=== PATIENT | female | born 1940 | race Caucasian/White ===

== ENCOUNTER 2016-12-13 19:47 | Outpatient (CLI) | payer MEDICARE, OTHER | END 2016-12-13 19:48 | disposition home or self-care (01) | DX: G47.33 Obstructive sleep apnea (adult) (pediatric) (principal); G47.00 Insomnia, unspecified ==

== ENCOUNTER 2017-01-11 10:21 | Outpatient (CLI) | payer MEDICARE, OTHER | END 2017-01-11 10:22 | disposition home or self-care (01) | DX: G47.33 Obstructive sleep apnea (adult) (pediatric) (principal) | CPT/HCPCS: 99213; G0463 ==

== ENCOUNTER 2018-08-15 11:50 | Outpatient (CLI) | payer MEDICARE, OTHER | END 2018-08-15 11:51 | disposition critical access hospital (66) | LOC: EMS 11:50 | PROVIDERS: ATTEND Surgery | DX: K92.0 Hematemesis (principal); K92.1 Melena | CPT/HCPCS: A0425; A0429 ==

== ENCOUNTER 2018-08-15 12:17 | Inpatient (IN) | payer MEDICARE, OTHER ==
[2018-08-15 12:48] LABS: BASOPHILS % (AUTO) 0.2 %; EOSINOPHILS % (AUTO) 0.1 %; HGB - HEMOGLOBIN 11.7 g/dL (12.0-16.0); LYMPHOCYTES # (AUTO) 0.9 10^3/uL (1.5-3.5); LYMPHOCYTES % (AUTO) 5.6 %; MEAN CORPUSCULAR HEMOGLOBIN 30.5 pg (27.0-31.0); MEAN CORPUSCULAR HGB CONC 33.8 g/dL (32.0-36.0); MEAN CORPUSCULAR VOLUME 90.1 fL (81.0-99.0); MEAN PLATELET VOLUME 7.3 fL (7.9-10.8); MONOCYTES # (AUTO) 0.4 10^3/uL (0.0-1.0); MONOCYTES % (AUTO) 2.6 %; NEUTROPHILS # (AUTO) 14.7 10^3/uL (1.5-6.6); NEUTROPHILS % (AUTO) 91.5 %; PLT - PLATELET COUNT 396 10^3/uL (130-450); RED BLOOD COUNT 3.83 10^6/uL (4.20-5.40); RED CELL DISTRIBUTION WIDTH 13.4 % (12.0-15.0); WHITE BLOOD COUNT 16.1 x10^3/uL (4.8-10.8)
[2018-08-15 12:59] LABS: ALBUMIN 3.2 g/dL (3.2-5.5); ALBUMIN/GLOBULIN RATIO 1.3 (1.0-2.2); ALKALINE PHOSPHATASE 62 IU/L (42-121); ALT ALANINE AMINOTRANSFERASE 22 IU/L (10-60); AST ASPARTATE AMINOTRANSFERASE 21 IU/L (10-42); BILIRUBIN,TOTAL 0.5 mg/dL (0.2-1.0); BUN - BLOOD UREA NITROGEN 49 mg/dL (6-20); CALCIUM 8.4 mg/dL (8.5-10.3); CARBON DIOXIDE - CO2 23 mmol/L (21-32); CHLORIDE 104 mmol/L (101-111); CREATININE 0.6 mg/dL (0.4-1.0); GFR - MDRD 97 (>89); GLUCOSE 172 mg/dL (70-100); LIPASE 39 U/L (22-51); SODIUM 135 mmol/L (135-145); TOTAL PROTEIN 5.7 g/dL (6.7-8.2)
[2018-08-15] MEDS ORDERED: FAMOTIDINE 20 MG/50 ML 50 ML IV SCH (13:00)
[2018-08-15 13:01] LABS: PT - PROTHROMBIN TIME 11.8 secs (9.9-12.6)
--- NOTE | 2018-08-15 13:21 | ED Physician Documentation ---
History of Present Illness - Stated complaint Stated Complaint: GI BLEED - Chief complaint Chief Complaint: Abd Pain - Additonal information Additional information: 77-year-old female presents the emergency department with reports of blood in her vomit and stools. The patient's symptoms started this morning with one episode of vomiting, the patient had another episode just prior to arrival where she vomited blood and had a significant amount of blood in her stools. The patient reports epigastric discomfort. The patient denies any new medications or any recent heavy alcohol usage. The patient does take a significant amount of [id number] supplements. The patient reports a history of gastritis but no history of GI bleeding. Symptoms are described as severe. The patient reports dizziness. No relieving factors. No triggering factors Review of Systems Constitutional: denies: Fever, Chills Eyes: denies: Discharge Ears: denies: Ear pain Nose: denies: Congestion Throat: denies: Sore throat Cardiac: denies: Chest pain / pressure Respiratory: denies: Cough GI: reports: Abdominal Pain, Nausea, Vomiting, Bloody / black stool : denies: Dysuria Skin: denies: Rash Musculoskeletal: denies: Back pain Neurologic: denies: Generalized weakness Immunocompromised: denies: Chemotherapy PD PAST MEDICAL HISTORY - Past Medical History Past Medical History: Yes GI: GERD Musculoskeletal: Chronic back pain - Past Surgical History Past Surgical History: Yes /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 - Present Medications Home Medications: Ambulatory Orders Medication Instructions Recorded Confirmed Amoxicillin/Potassium Clav 1 each PO BID #20 tablet 03/26/15 03/26/15 [Augmentin 875-125 Tablet] Oxycodone HCl/Acetaminophen 1 - 2 each PO Q6H PRN #15 tablet 03/26/15 03/26/15 [Percocet 5-325 mg Tablet] Thyroid,Pork [Nature-Throid] 16.25 mg PO DAILY 03/26/15 03/26/15 - Allergies Allergies/Adverse Reactions: Allergies Allergy/AdvReac Type Severity Reaction Status Date / Time No Known Drug Allergies Allergy Verified 08/15/18 12:25 - Social History Does the pt smoke?: No Smoking Status: Never smoker Does the pt drink ETOH?: Yes Does the pt have substance abuse?: No - Immunizations Immunizations are current?: No Immunizations: No immun PD ED PE NORMAL - General General: Alert and oriented X 3, No acute distress - HEENT HEENT: Atraumatic, PERRL, EOMI, Ears normal - Cardiac Cardiac: RRR, Strong equal pulses - Respiratory Respiratory: No respiratory distress, Clear bilaterally - Abdomen Abdomen: Soft, Non distended. No: Non tender (The patient has epigastric tenderness) - Derm Derm: Normal color - Extremities Extremities: No deformity, No edema - Neuro Neuro: Alert and oriented X 3, Normal speech - Psych Psych: Normal affect Results - Vitals Vitals: Vital Signs - 24 hr 08/15/18 08/15/18 12:21 13:30 Heart Rate 87 78 Respiratory 18 20 Rate Blood Pressure 129/71 128/65 O2 Saturation 95 97 Oxygen O2 Source Room air - Labs Labs: Laboratory Tests 08/15/18 08/15/18 08/15/18 12:35 12:35 12:35 WBC 16.1 H RBC 3.83 L Hgb 11.7 L Hct 34.5 L MCV 90.1 MCH 30.5 MCHC 33.8 RDW 13.4 Plt Count 396 MPV 7.3 L Neut # (Auto) 14.7 H Lymph # (Auto) 0.9 L [place] # (Auto) 0.4 Eos # (Auto) 0.0 Baso # (Auto) 0.0 Absolute Nucleated RBC 0.00 Nucleated RBC % 0.0 PT 11.8 INR 1.0 APTT 25.1 Sodium 135 Potassium 4.7 Chloride 104 Carbon Dioxide 23 Anion Gap 8.0 BUN 49 H Creatinine 0.6 Estimated GFR (MDRD) 97 Glucose 172 H Calcium 8.4 L Total Bilirubin 0.5 AST 21 ALT 22 Alkaline Phosphatase 62 Troponin I Total Protein 5.7 L Albumin 3.2 Globulin 2.5 Albumin/Globulin Ratio 1.3 Lipase 39 Ethyl Alcohol < 5.0 Blood Type Antibody Screen 08/15/18 08/15/18 12:35 12:36 WBC RBC Hgb Hct MCV MCH MCHC RDW Plt Count MPV Neut # (Auto) Lymph # (Auto) [place] # (Auto) Eos # (Auto) Baso # (Auto) Absolute Nucleated RBC Nucleated RBC % PT INR APTT Sodium Potassium Chloride Carbon Dioxide Anion Gap BUN Creatinine Estimated GFR (MDRD) Glucose Calcium Total Bilirubin AST ALT Alkaline Phosphatase Troponin I < 0.04 Total Protein Albumin Globulin Albumin/Globulin Ratio Lipase Ethyl Alcohol Blood Type B NEGATIVE Antibody Screen NEGATIVE PD MEDICAL DECISION MAKING - ED course ED course: The patient has an acute GI bleed, the patient was started on Protonix drip and will require admission to the hospital for ongoing management of her symptoms. The findings and plan were discussed the patient and family who understand and agree to the plan The case is discussed with the hospitalist Dr. Vila who accepts the patient onto her service - Sepsis Event Vital Signs: Vital Signs - 24 hr 08/15/18 08/15/18 12:21 13:30 Heart Rate 87 78 Respiratory 18 20 Rate Blood Pressure 129/71 128/65 O2 Saturation 95 97 Oxygen O2 Source Room air Departure - Departure Disposition: ED Place in Observation Clinical Impression: GI bleed Qualifiers: GI bleed type/associated pathology: unspecified gastrointestinal hemorrhage type Qualified Code(s): K92.2 - Gastrointestinal hemorrhage, unspecified Condition: Fair
[2018-08-15] MEDS ORDERED: PANTOPRAZOLE 80 MG in SODIUM CHLORIDE 0.9% 100ML 100 ML IV STA ×4 (13:34)
[2018-08-15] MEDS ORDERED: METOCLOPRAMIDE 10 MG/2 ML VIAL IVP STA (13:35)
[2018-08-15] MEDS ORDERED: MORPHINE 10 MG/ML VIAL IVP STA (13:35)
[2018-08-15] MEDS ORDERED: SODIUM CHLORIDE FLUSH 0.9% 10 ML SYRINGE IVP PRN (14:12)
[2018-08-15] MEDS ORDERED: SODIUM CHLORIDE 0.9% 1,000 ML IV ONE (14:15)
--- NOTE | 2018-08-15 14:16 | HISTORY & PHYSICAL EXAMINATION ---
Chief Complaint - Chief Complaint Chief Complaint: epi-gastric pain History of Present Illness - Admitted From Admitted From:: ED - History Obtained From Records Reviewed: yes History obtained from: chart review, patient Exam Limitations: none - History of Present Illness HPI Comment/Other: Donte Aleman is a 77-year old female with a past medical history of GERD, gastritis, H. pylori, 2 c-sections, and osteoarthritis. She woke up this morning with an urgency to move her bowels, and 30 minutes later. The second time she noticed that this was accompanied by diaphoresis, nausea, dizziness and the stool appeared loose and black. She beleived that she ate too many blueberries the day before, so thought this may have made her stool a dark color. She saw her aircraft instrument tester in the clinic who concluded that these symptoms are from "food poisoning". When she returned home, she vomited up bright red blood that she describes as about a mouth full and called 911. Once arriving in the ED the patient was found to be mildly anemic with a hemoglobin of 11.7 and a hematocrit of 34.5. She was also noted to have an elevated WBC count of 16.1, an elevated BUN of 49, an elevated blood glucose of 172, a normal troponin, a negative blood alcohol level and was otherwise hemodynamically stable. Due to her reports of vomiting blood, anemia, and WBC count, she will be admitted to inpatient with a GI consult. Once arriving on the nursing floor, she got up to the bed side commode, lost consciousness, appeared pale diaphoretic, was bradycardic with heart rates in the 60's, normal blood pressure. She was manually lifted to bed by nursing, placed in trendelenberg, given a 500ml normal saline bolus and monitored. Her family was in the hallway and updated. I called Dr. Lacho Ga, who will plan for an immediate EGD. The patient's commode was nearly all the way full of black/maroon stool. STAT labs, a chest x-ray and an EKG were obtained and final results pending. History - Past Medical History Cardiovascular: reports: None Respiratory: reports: None Neuro: reports: None Endocrine/Autoimmune: reports: None GI: reports: GERD, Other (gastritis) RESPIRATORY ASSISTANT: reports: None : reports: Retention, Nocturia, Frequency HEENT: reports: None Psych: reports: None Musculoskeletal: reports: Chronic back pain Derm: reports: None MRSA Hx?: No - Past Surgical History /RESPIRATORY ASSISTANT: reports: section - Family & Social History Family History: Mother: , Father: , Cancer Family History Comment/Other: The patient's mother from complications after ischemic colitis, her father had pancreatic cancer. 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 She lives alone and does all of her ADLs independently. She denies the use of alcohol, illicit drugs, or tobacco use. She wishes to be a FULL code. - Substance History Use: Uses substance without health or social issues: NONE Abuse: Recurrent use of substance despite neg consequences: NONE Dependence: Experiences withdrawal or developed tolerances: NONE - POLST Patient has POLST: No POLST Status: Full Code Meds/Allgy - Home Medications Home Medications: Ambulatory Orders Medication Instructions Recorded Confirmed Thyroid,Pork [Nature-Throid] 16.25 mg PO DAILY 03/26/15 08/16/18 Estradiol 0.25 mg TOP DAILY 08/16/18 08/16/18 Naltrexone HCl 3 mg PO QPM 08/16/18 08/16/18 Testosterone 4 mg TOP DAILY 08/16/18 08/16/18 - Allergies Allergies/Adverse Reactions: Allergies Allergy/AdvReac Type Severity Reaction Status Date / Time No Known Drug Allergies Allergy Verified 08/15/18 12:25 Exam - Vital Signs Vital Signs: Vital Signs x48h Pulse Resp BP Pulse Ox 08/15/18 13:30 78 20 128/65 97 08/15/18 12:21 87 18 129/71 95 Conclusion/Plan - Problem List (1) GI bleed Conclusion/Plan: The patient admits to vomiting "about a mouth full" of blood this morning. She also had frequent stools beginning at 6:15AM, and another about 30 minutes later. She states that her stool appeared black, but thought it was due to eating too many blueberries yesterday. She states that starting last Tuesday 3 days ago, she noticed increased heartburn symptoms. The patient had a syncopal episode soon after arriving to the nursing floor in which she lost consciousness, a danny garcia was called and she filled the bedside commode with black/maroon liquid stool. Dr. Lacho Ga was called for this consult, who will plan to do an EGD STEFAN. Plan: Continue GI work up with EGD this evening. Qualifiers: GI bleed type/associated pathology: gastric ulcer Qualified Code(s): K25.4 - Chronic or unspecified gastric ulcer with hemorrhage (2) Abdominal pain Conclusion/Plan: The patient complains of LUQ and RUQ abdominal pain that began this morning. She had 2 loose, black stools and went to her PCP who is a aircraft instrument tester and concluded that she has "food poisoning". She went home and vomited a mouth full of bright red blood, so called 911. Once in the ED she continued to complain of abdominal pain as severe. Plan: Continue GI work up. 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 She may have had ulcers creeping up on her, and denies recent bleeding or a cancer history. Plan: Iron studies and serial H/Hs. (4) H/O Helicobacter infection Conclusion/Plan: The patient states that she had a history of this in which she was treated by "lowering her blood sugar and being injected with something". Plan: Wait for testing and plan to treat if positive. - Lab Results Lab results reviewed: Yes Victor Manuel Bones: 08/16/18 05:00 08/16/18 05:00 Core Measures - Anticipated LOS I expect patient to be DC'd or transferred within 96 hours.: Yes - DVT/VTE - Prophylaxis VTE/DVT Device ordered at admit?: Yes VTE/DVT Prophylaxis med ordered at admit?: No Not Ordered - Medical Reason: Contraindicated - Stroke - Rehab Assessment Rehab services assessment to be ordered?: No Not Ordered - Medical Reason: Contraindicated - AMI - Statin at Admit Aspirin Prescribed on Admit: No Not Ordered - Medical Reason: Contraindicated
[2018-08-15] MEDS ORDERED: SODIUM CHLORIDE 0.9% 500 ML IV ONE (17:29)
[2018-08-15 17:32] LABS: BASOPHILS % (AUTO) 0.4 %; EOSINOPHILS % (AUTO) 0.1 %; LYMPHOCYTES % (AUTO) 8.1 %; MEAN CORPUSCULAR HEMOGLOBIN 30.2 pg (27.0-31.0); MEAN CORPUSCULAR HGB CONC 33.1 g/dL (32.0-36.0); MEAN CORPUSCULAR VOLUME 91.2 fL (81.0-99.0); MEAN PLATELET VOLUME 7.6 fL (7.9-10.8); MONOCYTES # (AUTO) 0.4 10^3/uL (0.0-1.0); NEUTROPHILS # (AUTO) 10.6 10^3/uL (1.5-6.6); NEUTROPHILS % (AUTO) 88.4 %; PLT - PLATELET COUNT 338 10^3/uL (130-450); RED BLOOD COUNT 2.99 10^6/uL (4.20-5.40); RED CELL DISTRIBUTION WIDTH 13.7 % (12.0-15.0)
[2018-08-15 17:41] LABS: CALCIUM 7.4 mg/dL (8.5-10.3); CREATININE 0.4 mg/dL (0.4-1.0)
[2018-08-15 17:45] LABS: INR 1.1 (0.8-1.2); PT - PROTHROMBIN TIME 12.7 secs (9.9-12.6)
[2018-08-15] MEDS: SODIUM CHLORIDE FLUSH 0.9% 10 ML SYRINGE IVP SCH (17:45)
[2018-08-15] MEDS ORDERED: PHENYLEPHRINE 50 MG/5 ML VIAL IV ONE (18:00)
[2018-08-15] MEDS ORDERED: fentaNYL 100 MCG/2 ML VIAL IVP ONE (18:00)
[2018-08-15] MEDS ORDERED: MIDAZOLAM 2 MG/2 ML VIAL IVP ONE (18:00)
[2018-08-15] MEDS ORDERED: PROPOFOL 200 MG/20 ML VIAL IVP ONE (18:00)
--- NOTE | 2018-08-15 18:03 | ANESTHESIA ---
Pre-Anesthesia VS, & Labs - Diagnosis GI Bleed - Procedure EGD Vital Signs: Temp Pulse Resp BP Pulse Ox 36.3 C L 86 18 127/42 L 98 08/15/18 16:07 08/15/18 16:07 08/15/18 16:07 08/15/18 16:00 08/15/18 16:07 Height 5 ft 2 in Weight (kg) 77.5 kg Body Mass Index 31.2 - NPO Last Fluid Intake: 1000-h2o Last Food Intake: 0800-protein shake - Is Patient ?: No - Lab Results Current Lab Results: Laboratory Tests 08/15/18 17:36: Lactic Acid 2.3 H 08/15/18 17:17: Troponin I < 0.04 08/15/18 17:17: Sodium 136, Potassium 4.5, Chloride 111, Carbon Dioxide 19 L, Anion Gap 6.0, BUN 48 H, Creatinine 0.4, Estimated GFR (MDRD) 156, Glucose 153 H , Calcium 7.4 L 08/15/18 17:17: PT 12.7 H, INR 1.1 08/15/18 17:17: WBC 12.0 H, RBC 2.99 L, Hgb 9.0 L, Hct 27.3 L, MCV 91.2, MCH 30.2, MCHC 33.1, RDW 13.7, Plt Count 338, MPV 7.6 L, Neut # (Auto) 10.6 H, Lymph # (Auto) 1.0 L, [place] # (Auto) 0.4, Eos # (Auto) 0.0, Baso # (Auto) 0.0, Absolute Nucleated RBC 0.00, Nucleated RBC % 0.0 08/15/18 12:36: Troponin I < 0.04 08/15/18 12:35: Blood Type B NEGATIVE, Antibody Screen NEGATIVE 08/15/18 12:35: Sodium 135, Potassium 4.7, Chloride 104, Carbon Dioxide 23, Anion Gap 8.0, BUN 49 H, Creatinine 0.6, Estimated GFR (MDRD) 97, Glucose 172 H, Calcium 8.4 L, Total Bilirubin 0.5, AST 21, ALT 22, Alkaline Phosphatase 62, Total Protein 5.7 L, Albumin 3.2, Globulin 2.5, Albumin/Globulin Ratio 1.3, Lipase 39, Ethyl Alcohol < 5.0 08/15/18 12:35: PT 11.8, INR 1.0, APTT 25.1 08/15/18 12:35: WBC 16.1 H, RBC 3.83 L, Hgb 11.7 L, Hct 34.5 L, MCV 90.1, MCH 30.5, MCHC 33.8, RDW 13.4, Plt Count 396, MPV 7.3 L, Neut # (Auto) 14.7 H, Lymph # (Auto) 0.9 L, [place] # (Auto) 0.4, Eos # (Auto) 0.0, Baso # (Auto) 0.0, Absolute Nucleated RBC 0.00, Nucleated RBC % 0.0 Fish Bones: 08/15/18 17:17 08/15/18 17:17 Home Medications and Allergies Home Medications: Ambulatory Orders Medication Instructions Recorded Confirmed Thyroid,Pork [Nature-Throid] 16.25 mg PO DAILY 03/26/15 03/26/15 Estrogens, Conjugated [Premarin] 08/15/18 Naltrexone HCl See Protocol 08/15/18 Testosterone [Androgel] 1.25 gm TD 08/15/18 Active Medications Pantoprazole Sodium 80 mg/ (Sodium Chloride) 100 mls @ 10 mls/hr IV .Q10H STA Stop: 08/15/18 23:33 Last Admin: 08/15/18 15:25 Dose: 10 mls/hr Polyethylene Glycol (Miralax) 17 gm PO DAILY ANA Sodium Chloride (Normal Saline Flush 0.9%) 10 ml IVP PRN PRN PRN Reason: NEEDED PER PROVIDER ORDERS Sodium Chloride (Normal Saline Flush 0.9%) 10 ml IVP 0100,0900,1700 ANA Thyroid,Pork [Nature-Throid] 16.25 mg PO DAILY 03/26/15 Allergies/Adverse Reactions: Allergies Allergy/AdvReac Type Severity Reaction Status Date / Time No Known Drug Allergies Allergy Verified 08/15/18 12:25 Anes History & Medical History - Anesthetic History Family history of Anesthesia Complications: Denies Family history of Malignant Hyperthermia: Denies - Medical History Cardiovascular: reports: None Pulmonary: reports: None Gastrointestinal: reports: GERD Urinary: reports: None Neuro: reports: None Musculoskeletal: reports: Chronic back pain Endocrine/Autoimmune: reports: HyPOthyroidism, Other (Patient reports she has undiagnosed autoimmune disorder) Blood Disorders: reports: None Skin: reports: Herpes zoster Smoking Status: Never smoker Other Past Medical History: situational anxiety - Surgical History Gynecologic: section Exam General: Alert, Oriented x3, Cooperative Dental: WNL Mouth Openin Fingerbreadth Neck Mobility: Normal Mallampati classification: III Thyromental Distance: 4-6 cm Respiratory: Lungs clear, Normal breath sounds, No respiratory distress, No accessory muscle use Cardiovascular: Other (Grade 4 systolic murmur) Mental/Cognitive Status: Alert/Oriented X3, Normal for patient Cognitive Status: Within normal limits, Memory impairment Plan Anesthesia Type: MAC Consent for Procedure(s) Verified and Reviewed: Yes Code Status: Attempt Resuscitation ASA classification: 3-Severe systemic disease Is this case an emergency?: Yes
--- NOTE | 2018-08-15 18:15 | CONSULTATION NOTE ---
Referring Provider Name of Referring Provider:: oJnes Arora Consult Date: 08/15/18 Chief Complaint - Chief Complaint Chief Complaint: GI bleed History of Present Illness - Admitted From Admitted From:: ER - History Obtained From Records Reviewed: yes History obtained from: pt and records Exam Limitations: none - History of Present Illness HPI Comment/Other: 77 yo female who noted onset of black stools x 2 this am, followed by an episode of bright red hematemesis this afternoon prompting evaluation in the ER and admission. Since admission, pt had a large black bloody bm associated with a syncopal episode at approx 1630 hrs today. She reports epigastric distress for the past 3-4 days, self diagnosed as "gastritis". She reports no prior episodes of gi bleeding but does report prior episodes of epigastric distress over many years. She reports a hx of H. pylori infection diagnosed approximately 10 yrs ago by her integrative medicine provider on the basis of a stool test to evaluate unknown gi complaints, and was treated by several injections with ap parent resolution of sx per pt. She reports rare heartburn, no dysphagia or food intolerance, no known hx of PUD, no prior UGI evaluations, minimal alcohol intake (less than one drink/month); no tobacco use; occasional NSAID use (once a week or less) for aches/pains; no recent wt loss. Neg FH gi tumors; she reports a nl colonoscopy approx 20 yrs ago. She currently is hemodynamically stable with nl vital signs and O2 saturation. 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 THERAPIST: reports: section (multiple) - Family & Social History Family History Comment/Other: Neg for Gi tumors Living arrangement: At home - Substance History Use: Uses substance without health or social issues: Alcohol (one drink a week or less) Abuse: Recurrent use of substance despite neg consequences: NONE Dependence: Experiences withdrawal or developed tolerances: NONE - POLST POLST Status: Full Code Meds/Allgy - Home Medications Home Medications: Ambulatory Orders Medication Instructions Recorded Confirmed Thyroid,Pork [Nature-Throid] 16.25 mg PO DAILY 03/26/15 03/26/15 Estrogens, Conjugated [Premarin] 08/15/18 Naltrexone HCl See Protocol 08/15/18 Testosterone [Androgel] 1.25 gm TD 08/15/18 - Allergies Allergies/Adverse Reactions: Allergies Allergy/AdvReac Type Severity Reaction Status Date / Time No Known Drug Allergies Allergy Verified 08/15/18 12:25 Review of Systems - Constitutional Constitutional: reports: Weakness, Diaphoresis. denies: Fever, Weight gain, Weight loss - Cardiovascular Cariovascular: reports: Lightheadedness (earlier today), Syncope (earlier this afternoon). denies: Irregular heart rate, Chest pain - Respiratory Respiratory: denies: Cough, Sputum production - Gastrointestinal Gastrointestinal: reports: Abdominal pain (mild epigastric distress), Change in bowel habits, Rectal bleeding, Black stools, Nausea, Victor M blood emesis. denies: Abdominal distention, Coffee grounds emesis, Reflux/heartburn - Musculoskeletal Musculoskeletal: reports: Back pain - Hematologic/Lymphatic Hematologic/Lymphatic: denies: Bruising, Bleeding tendencies - All Other Systems All Other Systems: reports: Reviewed and negative Exam - Vital Signs Reviewed Vital Signs: Yes Vital Signs: Vital Signs x48h Temp Pulse Pulse Resp BP BP Pulse Ox 08/15/18 16:07 36.3 C L 86 18 98 08/15/18 16:00 36.3 C L 86 20 127/42 L 98 08/15/18 13:30 78 20 128/65 97 08/15/18 12:21 87 18 129/71 95 - Physical Exam General Appearance: positive: No acute distress, Alert, Anxious Eyes Bilateral: positive: Normal inspection, Conjunctivae nml, No scleral icterus ENT: positive: ENT inspection nml, Pharynx nml, No signs of dehydration Neck: positive: Nml inspection, Trachea midline. negative: Lymphadenopathy (R), Lymphadenopathy (L) Respiratory: positive: Chest non-tender, No respiratory distress, Breath sounds nml. negative: Wheezes, Rales, Rhonchi Cardiovascular: positive: Regular rate & rhythm, No gallop, Systolic murmur (CHRISTIANNE). negative: JVD present Peripheral Pulses: positive: 2+ Abdomen: positive: Non-tender, No organomegaly, Nml bowel sounds, No distention. negative: Guarding, Rebound, Hepatomegaly, Splenomegaly, Mass Skin: positive: Warm, Dry, Pallor. negative: Cyanosis Extremities: positive: Nml appearance, No pedal edema. negative: Calf tenderness Neurologic/Psychiatric: positive: Oriented x3 Conclusion/Plan - Diagnosis Diagnosis: Upper GI bleed, major, with syncopal episode. DDX includes H. Pylori infection/PUD, neoplasm, dieulafoy lesion, angiodysplasia, doubt gastritis, varices, GERD. - Plan Plan: Agree with present management with IVF, IV PPI therapy, transfuse prn. Advised pt to undergo EGD this evening with possible therapy. PAR conference with pt including discussed risks of continued/recurrent bleeding and possible need for surgery, and consent obtained. - Lab Results Lab results reviewed: Yes Fish Bones: 08/15/18 17:17 08/15/18 17:17 - Diagnostic Imaging Results Diagnostic Imaging Results: positive: Read independently Diagnostic Imaging Results Comments: upright portable CXR: NAD to my reading. - EKG Results EKG Interpreted Independently: No EKG Findings: NSR; possible old septal infarct
[2018-08-15] MEDS ORDERED: KETAMINE 500 MG/10 ML VIAL ONE (18:25)
[2018-08-15] MEDS ORDERED: fentaNYL 100 MCG/2 ML VIAL ONE (18:25)
[2018-08-15] MEDS ORDERED: MIDAZOLAM 2 MG/2 ML VIAL ONE (18:25)
[2018-08-15] MEDS ORDERED: LACTATED RINGERS 1,000 ML IV ONE (18:44)
--- NOTE | 2018-08-15 18:46 | XRAY Report ---
Reason: syncope Procedure Date: 08/15/2018 Accession Number: [id number] / [id number] Procedure: XR - Chest 1 View X-Ray CPT Code: 73430 FULL RESULT: EXAM: CHEST RADIOGRAPHY EXAM DATE: 08/15/2018 05:29 PM. CLINICAL HISTORY: Syncope. COMPARISON: None. TECHNIQUE: 1 view. FINDINGS: Lungs/Pleura: No focal opacities evident. No pleural effusion. No pneumothorax. Mediastinum: Normal heart size. There is thoracic aortic calcification. Other: None. IMPRESSION: No acute intrathoracic plain film abnormality. RADIA
[2018-08-15] MEDS: LACTATED RINGERS 1,000 ML IV SCH (19:20)
[2018-08-15 20:47] LABS: HGB - HEMOGLOBIN 8.6 g/dL (12.0-16.0)
[2018-08-15 21:20] LABS: % IRON SATURATION 30 % (20-50); GAMMA GLUTAMYL TRANSPEPTIDASE 11 IU/L (8-38); IRON 74 ug/dL (28-170); TOTAL IRON BINDING CAPACITY 246 ug/dL (250-450); TRANSFERRIN 176 mg/dL (192-382)
[2018-08-15] MEDS ORDERED: LIDOCAINE 2% URO-JET 5 ML SYRINGE UR ONE (21:25)
[2018-08-15 21:48] LABS: BILIRUBIN,URINE NEGATIVE (NEGATIVE); GLUCOSE, URINE (UA) NEGATIVE (NEGATIVE); KETONES,URINE (UA) NEGATIVE (NEGATIVE); LEUKOCYTE ESTERASE, URINE NEGATIVE (NEGATIVE); NITRITE,URINE NEGATIVE (NEGATIVE); OCCULT BLOOD,URINE NEGATIVE (NEGATIVE); PH,URINE 5.5 PH (5.0-7.5); PROTEIN,URINE NEGATIVE (NEGATIVE); UROBILINOGEN,URINE 0.2 (NORMAL) E.U./dL (NORMAL)
[2018-08-15] MEDS ORDERED: LIDOCAINE 2% URO-JET 5 ML SYRINGE UR SCH (21:48)
[2018-08-15 21:53] LABS: CLARITY,URINE CLEAR (CLEAR)
[2018-08-15 23:56] LABS: HGB - HEMOGLOBIN 8.4 g/dL (12.0-16.0)
[2018-08-16] MEDS: SODIUM CHLORIDE FLUSH 0.9% 10 ML SYRINGE IVP SCH ×3 (02:55→18:06)
[2018-08-16 05:20] LABS: BASOPHILS % (AUTO) 0.5 %; EOSINOPHILS # (AUTO) 0.1 10^3/uL (0.0-0.7); EOSINOPHILS % (AUTO) 0.7 %; HGB - HEMOGLOBIN 7.3 g/dL (12.0-16.0); LYMPHOCYTES % (AUTO) 23.1 %; MEAN CORPUSCULAR HEMOGLOBIN 30.9 pg (27.0-31.0); MEAN CORPUSCULAR HGB CONC 33.9 g/dL (32.0-36.0); MEAN CORPUSCULAR VOLUME 91.1 fL (81.0-99.0); MEAN PLATELET VOLUME 7.3 fL (7.9-10.8); MONOCYTES # (AUTO) 0.7 10^3/uL (0.0-1.0); MONOCYTES % (AUTO) 8.3 %; NEUTROPHILS # (AUTO) 5.8 10^3/uL (1.5-6.6); NEUTROPHILS % (AUTO) 67.4 %; PLT - PLATELET COUNT 283 10^3/uL (130-450); RED BLOOD COUNT 2.38 10^6/uL (4.20-5.40); RED CELL DISTRIBUTION WIDTH 13.7 % (12.0-15.0); WHITE BLOOD COUNT 8.6 x10^3/uL (4.8-10.8)
[2018-08-16 05:31] LABS: ALBUMIN 2.6 g/dL (3.2-5.5); ALBUMIN/GLOBULIN RATIO 1.5 (1.0-2.2); BILIRUBIN,TOTAL 0.4 mg/dL (0.2-1.0); CALCIUM 7.4 mg/dL (8.5-10.3); CREATININE 0.6 mg/dL (0.4-1.0); TOTAL PROTEIN 4.3 g/dL (6.7-8.2)
[2018-08-16] MEDS: LACTATED RINGERS 1,000 ML IV SCH ×2 (06:41→10:24)
[2018-08-16] MEDS ORDERED: ACETAMINOPHEN 1,000 MG/100 ML 100 ML IV SCH (08:43)
[2018-08-16] MEDS ORDERED: diphenhydrAMINE INJ 50 MG/ML VIAL IVP PRN (08:43)
--- NOTE | 2018-08-16 08:48 | PROVIDER PROGRESS NOTE ---
Subjective - Prog Note Date Prog Note Date: 08/16/18 Prog Note Time: 08:48 - Subjective Pt reports feeling: Improved Subjective: Andrea has no complaints, except for she cannot urinate with anyone around her. She continues to appear pale, and complains of weakness. She denies chest pain, nausea, vomiting, diarrhea, rashes, any evidence of further bleeding, or a new cough. She states that she has had a few more episodes of black stools today. Current Medications - Current Medications Current Medications: Active Medications Diphenhydramine HCl (Benadryl Inj) 25 mg IVP Q6H PRN PRN Reason: Allergy Symptoms Lactated Ringer's (Lr) 1,000 mls @ 50 mls/hr IV .Q20H ANA Last Admin: 08/16/18 10:24 Dose: 50 mls/hr Pork Thyroid [Nature (-Throid] 16.25 Mg) 1 each PO DAILY ANA Polyethylene Glycol (Miralax) 17 gm PO DAILY ANA Last Admin: 08/16/18 09:35 Dose: 17 gm Sodium Chloride (Normal Saline Flush 0.9%) 10 ml IVP PRN PRN PRN Reason: NEEDED PER PROVIDER ORDERS Sodium Chloride (Normal Saline Flush 0.9%) 10 ml IVP 0100,0900,1700 [facility] Last Admin: 08/16/18 18:06 Dose: 10 ml Thyroid,Pork [Nature-Throid] 16.25 mg PO DAILY 03/26/15 Estradiol 0.25 mg TOP DAILY 08/16/18 Naltrexone HCl 3 mg PO QPM 08/16/18 Testosterone 4 mg TOP DAILY 08/16/18 Objective - Vital Signs/Intake & Output Reviewed Vital Signs: Yes Vital Signs: Vital Signs x48h Temp Pulse Resp BP Pulse Ox 08/16/18 08:00 37.2 C 75 16 154/50 H 97 08/16/18 04:35 37.0 C 75 16 131/41 H 97 Intake & Output: Intake & Output 08/13/18 08/14/18 08/15/18 08/16/18 23:59 23:59 23:59 23:59 Intake Total 1650 1100 Output Total 675 650 Balance 975 450 - Objective General Appearance: positive: No acute distress, Alert Eyes Bilateral: positive: Normal inspection Eyes: OU Conjunctivae pale ENT: positive: ENT inspection nml, Pharynx nml, Dry mucous membranes Neck: positive: Thyroid nml, No JVD, Trachea midline Respiratory: positive: Chest non-tender, No respiratory distress, Breath sounds nml Cardiovascular: positive: Regular rate & rhythm, No gallop, Systolic murmur Peripheral Pulses: 1+ Radial (R), 1+ Radial (L) Abdomen: positive: Non-tender, Nml bowel sounds, No distention, Guarding Rectal: positive: Stool - heme POS Back: positive: Nml inspection Skin: positive: No rash, Warm, Dry, Pallor Extremities: positive: Non-tender, Full ROM, Pedal edema (trace) Neurologic/Psychiatric: positive: Oriented x3, CN's nml (2-12), Motor nml, Sensation nml, Slurred/abnml speech, Depressed mood/affect Reflexes: Bicep (R): 2+, Bicep (L): 2+ - Lab Results Fish Bones: 08/17/18 06:00 08/17/18 06:00 Other Labs: Lab Results x24hrs 08/16/18 08/16/18 08/15/18 Range/Units 05:00 05:00 23:43 WBC 8.6 (4.8-10.8) x10^3/uL RBC 2.38 L (4.20-5.40) 10^6/uL Hgb 7.3 L 8.4 L (12.0-16.0) g/dL Hct 21.7 L 24.8 L (37.0-47.0) % MCV 91.1 (81.0-99.0) fL MCH 30.9 (27.0-31.0) pg MCHC 33.9 (32.0-36.0) g/dL RDW 13.7 (12.0-15.0) % Plt Count 283 (130-450) 10^3/uL MPV 7.3 L (7.9-10.8) fL Neut # (Auto) 5.8 (1.5-6.6) 10^3/uL Lymph # (Auto) 2.0 (1.5-3.5) 10^3/uL [place] # (Auto) 0.7 (0.0-1.0) 10^3/uL Eos # (Auto) 0.1 (0.0-0.7) 10^3/uL Baso # (Auto) 0.0 (0.0-0.1) 10^3/uL Absolute Nucleated RBC 0.01 x10^3/uL Nucleated RBC % 0.1 /100WBC PT (9.9-12.6) secs INR (0.8-1.2) APTT (24.9-33.3) secs Sodium 140 (135-145) mmol/L Potassium 4.0 (3.5-5.0) mmol/L Chloride 112 H (101-111) mmol/L Carbon Dioxide 23 (21-32) mmol/L Anion Gap 5.0 L (6-13) BUN 31 H (6-20) mg/dL Creatinine 0.6 (0.4-1.0) mg/dL Estimated GFR (MDRD) 97 (>89) Glucose 99 (70-100) mg/dL POC Whole Bld Glucose (70 - 100) mg/dL Lactic Acid (0.5-2.2) mmol/L Calcium 7.4 L (8.5-10.3) mg/dL Iron (28-170) ug/dL TIBC (250-450) ug/dL % Saturation (20-50) % Transferrin (192-382) mg/dL Total Bilirubin 0.4 (0.2-1.0) mg/dL GGT (8-38) IU/L AST 22 (10-42) IU/L ALT 20 (10-60) IU/L Alkaline Phosphatase 41 L (42-121) IU/L Troponin I (<0.49) ng/mL Total Protein 4.3 L (6.7-8.2) g/dL Albumin 2.6 L (3.2-5.5) g/dL Globulin 1.7 L (2.1-4.2) g/dL Albumin/Globulin Ratio 1.5 (1.0-2.2) Lipase (22-51) U/L TSH (0.34-5.60) uIU/mL Urine Color Urine Clarity (CLEAR) Urine pH (5.0-7.5) PH Ur Specific [place] (1.002-1.030) Urine Protein (NEGATIVE) mg/dL Urine Glucose (UA) (NEGATIVE) mg/dL Urine Ketones (NEGATIVE) mg/dL Urine Occult Blood (NEGATIVE) Urine Nitrite (NEGATIVE) Urine Bilirubin (NEGATIVE) Urine Urobilinogen (NORMAL) E.U./dL Ur Leukocyte Esterase (NEGATIVE) Ur Microscopic Review Urine Culture Comments Ethyl Alcohol mg/dL Blood Type Blood Type Recheck Antibody Screen 08/15/18 08/15/18 08/15/18 Range/Units 23:43 23:43 21:42 WBC (4.8-10.8) x10^3/uL RBC (4.20-5.40) 10^6/uL Hgb (12.0-16.0) g/dL Hct (37.0-47.0) % MCV (81.0-99.0) fL MCH (27.0-31.0) pg MCHC (32.0-36.0) g/dL RDW (12.0-15.0) % Plt Count (130-450) 10^3/uL MPV (7.9-10.8) fL Neut # (Auto) (1.5-6.6) 10^3/uL Lymph # (Auto) (1.5-3.5) 10^3/uL [place] # (Auto) (0.0-1.0) 10^3/uL Eos # (Auto) (0.0-0.7) 10^3/uL Baso # (Auto) (0.0-0.1) 10^3/uL Absolute Nucleated RBC x10^3/uL Nucleated RBC % /100WBC PT (9.9-12.6) secs INR (0.8-1.2) APTT (24.9-33.3) secs Sodium (135-145) mmol/L Potassium (3.5-5.0) mmol/L Chloride (101-111) mmol/L Carbon Dioxide (21-32) mmol/L Anion Gap (6-13) BUN (6-20) mg/dL Creatinine (0.4-1.0) mg/dL Estimated GFR (MDRD) (>89) Glucose (70-100) mg/dL POC Whole Bld Glucose (70 - 100) mg/dL Lactic Acid 0.9 (0.5-2.2) mmol/L Calcium (8.5-10.3) mg/dL Iron (28-170) ug/dL TIBC (250-450) ug/dL % Saturation (20-50) % Transferrin (192-382) mg/dL Total Bilirubin (0.2-1.0) mg/dL GGT (8-38) IU/L AST (10-42) IU/L ALT (10-60) IU/L Alkaline Phosphatase (42-121) IU/L Troponin I (<0.49) ng/mL Total Protein (6.7-8.2) g/dL Albumin (3.2-5.5) g/dL Globulin (2.1-4.2) g/dL Albumin/Globulin Ratio (1.0-2.2) Lipase (22-51) U/L TSH (0.34-5.60) uIU/mL Urine Color YELLOW Urine Clarity CLEAR (CLEAR) Urine pH 5.5 (5.0-7.5) PH Ur Specific [place] 1.010 (1.002-1.030) Urine Protein NEGATIVE (NEGATIVE) mg/dL Urine Glucose (UA) NEGATIVE (NEGATIVE) mg/dL Urine Ketones NEGATIVE (NEGATIVE) mg/dL Urine Occult Blood NEGATIVE (NEGATIVE) Urine Nitrite NEGATIVE (NEGATIVE) Urine Bilirubin NEGATIVE (NEGATIVE) Urine Urobilinogen 0.2 (NORMAL) (NORMAL) E.U./dL Ur Leukocyte Esterase NEGATIVE (NEGATIVE) Ur Microscopic Review NOT INDICATED Urine Culture Comments NOT INDICATED Ethyl Alcohol mg/dL Blood Type Blood Type Recheck B NEGATIVE Antibody Screen 08/15/18 08/15/18 08/15/18 Range/Units 20:40 20:40 20:40 WBC (4.8-10.8) x10^3/uL RBC (4.20-5.40) 10^6/uL Hgb (12.0-16.0) g/dL Hct (37.0-47.0) % MCV (81.0-99.0) fL MCH (27.0-31.0) pg MCHC (32.0-36.0) g/dL RDW (12.0-15.0) % Plt Count (130-450) 10^3/uL MPV (7.9-10.8) fL Neut # (Auto) (1.5-6.6) 10^3/uL Lymph # (Auto) (1.5-3.5) 10^3/uL [place] # (Auto) (0.0-1.0) 10^3/uL Eos # (Auto) (0.0-0.7) 10^3/uL Baso # (Auto) (0.0-0.1) 10^3/uL Absolute Nucleated RBC x10^3/uL Nucleated RBC % /100WBC PT (9.9-12.6) secs INR (0.8-1.2) APTT (24.9-33.3) secs Sodium (135-145) mmol/L Potassium (3.5-5.0) mmol/L Chloride (101-111) mmol/L Carbon Dioxide (21-32) mmol/L Anion Gap (6-13) BUN (6-20) mg/dL Creatinine (0.4-1.0) mg/dL Estimated GFR (MDRD) (>89) Glucose (70-100) mg/dL POC Whole Bld Glucose (70 - 100) mg/dL Lactic Acid 1.2 (0.5-2.2) mmol/L Calcium (8.5-10.3) mg/dL Iron 74 (28-170) ug/dL TIBC 246 L (250-450) ug/dL % Saturation 30 (20-50) % Transferrin 176 L (192-382) mg/dL Total Bilirubin (0.2-1.0) mg/dL GGT 11 (8-38) IU/L AST (10-42) IU/L ALT (10-60) IU/L Alkaline Phosphatase (42-121) IU/L Troponin I (<0.49) ng/mL Total Protein (6.7-8.2) g/dL Albumin (3.2-5.5) g/dL Globulin (2.1-4.2) g/dL Albumin/Globulin Ratio (1.0-2.2) Lipase (22-51) U/L TSH 2.68 (0.34-5.60) uIU/mL Urine Color Urine Clarity (CLEAR) Urine pH (5.0-7.5) PH Ur Specific [place] (1.002-1.030) Urine Protein (NEGATIVE) mg/dL Urine Glucose (UA) (NEGATIVE) mg/dL Urine Ketones (NEGATIVE) mg/dL Urine Occult Blood (NEGATIVE) Urine Nitrite (NEGATIVE) Urine Bilirubin (NEGATIVE) Urine Urobilinogen (NORMAL) E.U./dL Ur Leukocyte Esterase (NEGATIVE) Ur Microscopic Review Urine Culture Comments Ethyl Alcohol mg/dL Blood Type Blood Type Recheck Antibody Screen 08/15/18 08/15/18 08/15/18 Range/Units 20:40 17:36 17:19 WBC (4.8-10.8) x10^3/uL RBC (4.20-5.40) 10^6/uL Hgb 8.6 L (12.0-16.0) g/dL Hct 25.3 L (37.0-47.0) % MCV (81.0-99.0) fL MCH (27.0-31.0) pg MCHC (32.0-36.0) g/dL RDW (12.0-15.0) % Plt Count (130-450) 10^3/uL MPV (7.9-10.8) fL Neut # (Auto) (1.5-6.6) 10^3/uL Lymph # (Auto) (1.5-3.5) 10^3/uL [place] # (Auto) (0.0-1.0) 10^3/uL Eos # (Auto) (0.0-0.7) 10^3/uL Baso # (Auto) (0.0-0.1) 10^3/uL Absolute Nucleated RBC x10^3/uL Nucleated RBC % /100WBC PT (9.9-12.6) secs INR (0.8-1.2) APTT (24.9-33.3) secs Sodium (135-145) mmol/L Potassium (3.5-5.0) mmol/L Chloride (101-111) mmol/L Carbon Dioxide (21-32) mmol/L Anion Gap (6-13) BUN (6-20) mg/dL Creatinine (0.4-1.0) mg/dL Estimated GFR (MDRD) (>89) Glucose (70-100) mg/dL POC Whole Bld Glucose 150 H (70 - 100) mg/dL Lactic Acid 2.3 H (0.5-2.2) mmol/L Calcium (8.5-10.3) mg/dL Iron (28-170) ug/dL TIBC (250-450) ug/dL % Saturation (20-50) % Transferrin (192-382) mg/dL Total Bilirubin (0.2-1.0) mg/dL GGT (8-38) IU/L AST (10-42) IU/L ALT (10-60) IU/L Alkaline Phosphatase (42-121) IU/L Troponin I (<0.49) ng/mL Total Protein (6.7-8.2) g/dL Albumin (3.2-5.5) g/dL Globulin (2.1-4.2) g/dL Albumin/Globulin Ratio (1.0-2.2) Lipase (22-51) U/L TSH (0.34-5.60) uIU/mL Urine Color Urine Clarity (CLEAR) Urine pH (5.0-7.5) PH Ur Specific [place] (1.002-1.030) Urine Protein (NEGATIVE) mg/dL Urine Glucose (UA) (NEGATIVE) mg/dL Urine Ketones (NEGATIVE) mg/dL Urine Occult Blood (NEGATIVE) Urine Nitrite (NEGATIVE) Urine Bilirubin (NEGATIVE) Urine Urobilinogen (NORMAL) E.U./dL Ur Leukocyte Esterase (NEGATIVE) Ur Microscopic Review Urine Culture Comments Ethyl Alcohol mg/dL Blood Type Blood Type Recheck Antibody Screen 08/15/18 08/15/18 08/15/18 Range/Units 17:17 17:17 17:17 WBC (4.8-10.8) x10^3/uL RBC (4.20-5.40) 10^6/uL Hgb (12.0-16.0) g/dL Hct (37.0-47.0) % MCV (81.0-99.0) fL MCH (27.0-31.0) pg MCHC (32.0-36.0) g/dL RDW (12.0-15.0) % Plt Count (130-450) 10^3/uL MPV (7.9-10.8) fL Neut # (Auto) (1.5-6.6) 10^3/uL Lymph # (Auto) (1.5-3.5) 10^3/uL [place] # (Auto) (0.0-1.0) 10^3/uL Eos # (Auto) (0.0-0.7) 10^3/uL Baso # (Auto) (0.0-0.1) 10^3/uL Absolute Nucleated RBC x10^3/uL Nucleated RBC % /100WBC PT 12.7 H (9.9-12.6) secs INR 1.1 (0.8-1.2) APTT (24.9-33.3) secs Sodium 136 (135-145) mmol/L Potassium 4.5 (3.5-5.0) mmol/L Chloride 111 (101-111) mmol/L Carbon Dioxide 19 L (21-32) mmol/L Anion Gap 6.0 (6-13) BUN 48 H (6-20) mg/dL Creatinine 0.4 (0.4-1.0) mg/dL Estimated GFR (MDRD) 156 (>89) Glucose 153 H (70-100) mg/dL POC Whole Bld Glucose (70 - 100) mg/dL Lactic Acid (0.5-2.2) mmol/L Calcium 7.4 L (8.5-10.3) mg/dL Iron (28-170) ug/dL TIBC (250-450) ug/dL % Saturation (20-50) % Transferrin (192-382) mg/dL Total Bilirubin (0.2-1.0) mg/dL GGT (8-38) IU/L AST (10-42) IU/L ALT (10-60) IU/L Alkaline Phosphatase (42-121) IU/L Troponin I < 0.04 (<0.49) ng/mL Total Protein (6.7-8.2) g/dL Albumin (3.2-5.5) g/dL Globulin (2.1-4.2) g/dL Albumin/Globulin Ratio (1.0-2.2) Lipase (22-51) U/L TSH (0.34-5.60) uIU/mL Urine Color Urine Clarity (CLEAR) Urine pH (5.0-7.5) PH Ur Specific [place] (1.002-1.030) Urine Protein (NEGATIVE) mg/dL Urine Glucose (UA) (NEGATIVE) mg/dL Urine Ketones (NEGATIVE) mg/dL Urine Occult Blood (NEGATIVE) Urine Nitrite (NEGATIVE) Urine Bilirubin (NEGATIVE) Urine Urobilinogen (NORMAL) E.U./dL Ur Leukocyte Esterase (NEGATIVE) Ur Microscopic Review Urine Culture Comments Ethyl Alcohol mg/dL Blood Type Blood Type Recheck Antibody Screen 08/15/18 08/15/18 08/15/18 Range/Units 17:17 17:17 12:36 WBC 12.0 H (4.8-10.8) x10^3/uL RBC 2.99 L (4.20-5.40) 10^6/uL Hgb 9.0 L (12.0-16.0) g/dL Hct 27.3 L (37.0-47.0) % MCV 91.2 (81.0-99.0) fL MCH 30.2 (27.0-31.0) pg MCHC 33.1 (32.0-36.0) g/dL RDW 13.7 (12.0-15.0) % Plt Count 338 (130-450) 10^3/uL MPV 7.6 L (7.9-10.8) fL Neut # (Auto) 10.6 H (1.5-6.6) 10^3/uL Lymph # (Auto) 1.0 L (1.5-3.5) 10^3/uL [place] # (Auto) 0.4 (0.0-1.0) 10^3/uL Eos # (Auto) 0.0 (0.0-0.7) 10^3/uL Baso # (Auto) 0.0 (0.0-0.1) 10^3/uL Absolute Nucleated RBC 0.00 x10^3/uL Nucleated RBC % 0.0 /100WBC PT (9.9-12.6) secs INR (0.8-1.2) APTT 23.5 L (24.9-33.3) secs Sodium (135-145) mmol/L Potassium (3.5-5.0) mmol/L Chloride (101-111) mmol/L Carbon Dioxide (21-32) mmol/L Anion Gap (6-13) BUN (6-20) mg/dL Creatinine (0.4-1.0) mg/dL Estimated GFR (MDRD) (>89) Glucose (70-100) mg/dL POC Whole Bld Glucose (70 - 100) mg/dL Lactic Acid (0.5-2.2) mmol/L Calcium (8.5-10.3) mg/dL Iron (28-170) ug/dL TIBC (250-450) ug/dL % Saturation (20-50) % Transferrin (192-382) mg/dL Total Bilirubin (0.2-1.0) mg/dL GGT (8-38) IU/L AST (10-42) IU/L ALT (10-60) IU/L Alkaline Phosphatase (42-121) IU/L Troponin I < 0.04 (<0.49) ng/mL Total Protein (6.7-8.2) g/dL Albumin (3.2-5.5) g/dL Globulin (2.1-4.2) g/dL Albumin/Globulin Ratio (1.0-2.2) Lipase (22-51) U/L TSH (0.34-5.60) uIU/mL Urine Color Urine Clarity (CLEAR) Urine pH (5.0-7.5) PH Ur Specific [place] (1.002-1.030) Urine Protein (NEGATIVE) mg/dL Urine Glucose (UA) (NEGATIVE) mg/dL Urine Ketones (NEGATIVE) mg/dL Urine Occult Blood (NEGATIVE) Urine Nitrite (NEGATIVE) Urine Bilirubin (NEGATIVE) Urine Urobilinogen (NORMAL) E.U./dL Ur Leukocyte Esterase (NEGATIVE) Ur Microscopic Review Urine Culture Comments Ethyl Alcohol mg/dL Blood Type Blood Type Recheck Antibody Screen 08/15/18 08/15/18 08/15/18 Range/Units 12:35 12:35 12:35 WBC (4.8-10.8) x10^3/uL RBC (4.20-5.40) 10^6/uL Hgb (12.0-16.0) g/dL Hct (37.0-47.0) % MCV (81.0-99.0) fL MCH (27.0-31.0) pg MCHC (32.0-36.0) g/dL RDW (12.0-15.0) % Plt Count (130-450) 10^3/uL MPV (7.9-10.8) fL Neut # (Auto) (1.5-6.6) 10^3/uL Lymph # (Auto) (1.5-3.5) 10^3/uL [place] # (Auto) (0.0-1.0) 10^3/uL Eos # (Auto) (0.0-0.7) 10^3/uL Baso # (Auto) (0.0-0.1) 10^3/uL Absolute Nucleated RBC x10^3/uL Nucleated RBC % /100WBC PT 11.8 (9.9-12.6) secs INR 1.0 (0.8-1.2) APTT 25.1 (24.9-33.3) secs Sodium 135 (135-145) mmol/L Potassium 4.7 (3.5-5.0) mmol/L Chloride 104 (101-111) mmol/L Carbon Dioxide 23 (21-32) mmol/L Anion Gap 8.0 (6-13) BUN 49 H (6-20) mg/dL Creatinine 0.6 (0.4-1.0) mg/dL Estimated GFR (MDRD) 97 (>89) Glucose 172 H (70-100) mg/dL POC Whole Bld Glucose (70 - 100) mg/dL Lactic Acid (0.5-2.2) mmol/L Calcium 8.4 L (8.5-10.3) mg/dL Iron (28-170) ug/dL TIBC (250-450) ug/dL % Saturation (20-50) % Transferrin (192-382) mg/dL Total Bilirubin 0.5 (0.2-1.0) mg/dL GGT (8-38) IU/L AST 21 (10-42) IU/L ALT 22 (10-60) IU/L Alkaline Phosphatase 62 (42-121) IU/L Troponin I (<0.49) ng/mL Total Protein 5.7 L (6.7-8.2) g/dL Albumin 3.2 (3.2-5.5) g/dL Globulin 2.5 (2.1-4.2) g/dL Albumin/Globulin Ratio 1.3 (1.0-2.2) Lipase 39 (22-51) U/L TSH (0.34-5.60) uIU/mL Urine Color Urine Clarity (CLEAR) Urine pH (5.0-7.5) PH Ur Specific [place] (1.002-1.030) Urine Protein (NEGATIVE) mg/dL Urine Glucose (UA) (NEGATIVE) mg/dL Urine Ketones (NEGATIVE) mg/dL Urine Occult Blood (NEGATIVE) Urine Nitrite (NEGATIVE) Urine Bilirubin (NEGATIVE) Urine Urobilinogen (NORMAL) E.U./dL Ur Leukocyte Esterase (NEGATIVE) Ur Microscopic Review Urine Culture Comments Ethyl Alcohol < 5.0 mg/dL Blood Type B NEGATIVE Blood Type Recheck Antibody Screen NEGATIVE 08/15/18 Range/Units 12:35 WBC 16.1 H (4.8-10.8) x10^3/uL RBC 3.83 L (4.20-5.40) 10^6/uL Hgb 11.7 L (12.0-16.0) g/dL Hct 34.5 L (37.0-47.0) % MCV 90.1 (81.0-99.0) fL MCH 30.5 (27.0-31.0) pg MCHC 33.8 (32.0-36.0) g/dL RDW 13.4 (12.0-15.0) % Plt Count 396 (130-450) 10^3/uL MPV 7.3 L (7.9-10.8) fL Neut # (Auto) 14.7 H (1.5-6.6) 10^3/uL Lymph # (Auto) 0.9 L (1.5-3.5) 10^3/uL [place] # (Auto) 0.4 (0.0-1.0) 10^3/uL Eos # (Auto) 0.0 (0.0-0.7) 10^3/uL Baso # (Auto) 0.0 (0.0-0.1) 10^3/uL Absolute Nucleated RBC 0.00 x10^3/uL Nucleated RBC % 0.0 /100WBC PT (9.9-12.6) secs INR (0.8-1.2) APTT (24.9-33.3) secs Sodium (135-145) mmol/L Potassium (3.5-5.0) mmol/L Chloride (101-111) mmol/L Carbon Dioxide (21-32) mmol/L Anion Gap (6-13) BUN (6-20) mg/dL Creatinine (0.4-1.0) mg/dL Estimated GFR (MDRD) (>89) Glucose (70-100) mg/dL POC Whole Bld Glucose (70 - 100) mg/dL Lactic Acid (0.5-2.2) mmol/L Calcium (8.5-10.3) mg/dL Iron (28-170) ug/dL TIBC (250-450) ug/dL % Saturation (20-50) % Transferrin (192-382) mg/dL Total Bilirubin (0.2-1.0) mg/dL GGT (8-38) IU/L AST (10-42) IU/L ALT (10-60) IU/L Alkaline Phosphatase (42-121) IU/L Troponin I (<0.49) ng/mL Total Protein (6.7-8.2) g/dL Albumin (3.2-5.5) g/dL Globulin (2.1-4.2) g/dL Albumin/Globulin Ratio (1.0-2.2) Lipase (22-51) U/L TSH (0.34-5.60) uIU/mL Urine Color Urine Clarity (CLEAR) Urine pH (5.0-7.5) PH Ur Specific [place] (1.002-1.030) Urine Protein (NEGATIVE) mg/dL Urine Glucose (UA) (NEGATIVE) mg/dL Urine Ketones (NEGATIVE) mg/dL Urine Occult Blood (NEGATIVE) Urine Nitrite (NEGATIVE) Urine Bilirubin (NEGATIVE) Urine Urobilinogen (NORMAL) E.U./dL Ur Leukocyte Esterase (NEGATIVE) Ur Microscopic Review Urine Culture Comments Ethyl Alcohol mg/dL Blood Type Blood Type Recheck Antibody Screen ABX Reporting Has patient been on IV antibiotics over the past 48 hours?: No Assessment/Plan - Problem List (1) GI bleed Impression: The patient admits to vomiting "about a mouth full" of blood this morning. She also had frequent stools beginning at 6:15AM, and another about 30 minutes late r. She states that her stool appeared black, but thought it was due to eating too many blueberries yesterday. She states that starting last Tuesday 3 days ago, she noticed increased heartburn symptoms. The patient had a syncopal episode soon after arriving to the nursing floor in which she lost co nsciousness, a code blue was called and she filled the bedside commode with black/maroon liquid stool. The patient underwent an EGD with Dr. Lacho Ga and preliminary findings suggested there was a likely source of bleeding as some tissues were noted to be discolored. Biopsies were taken, and the patient will remain on a protonix gtt for at least 48 hours. Plan: Give 2 units of PRBCs tonight, continue protonix gtt, clear liquid diet, and possibly home tomorrow if the patient remains stable. Qualifiers: GI bleed type/associated pathology: gastric ulcer Qualified Code(s): K25.4 - Chronic or unspecified gastric ulcer with hemorrhage (2) Abdominal pain Impression: The patient complains of LUQ and RUQ abdominal pain that began on the morning prior to admission. She had 2 loose, black stools and went to her PCP who is a [employer] operator [employer] and concluded that she has "food poisoning". She went home and vomited a mouth full of bright red blood, so called 911. Once in the ED she continued to complain of abdominal pain as severe. Today she is post EGD, and remains on a protonix gtt. Upon exam, she denies any abdominal pain and her abdomen is soft with good bowel sounds throughout. Plan: Continue to monitor, and a clear liquid diet for now. 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 She may have had ulcers creeping up on her, and denies recent bleeding or a cancer history. She continues to appear pale, has intermettent shortness of breath that becomes worse with activity, and has continued weakness with fatigue. She is agreeable to a blood transfusion, so she will get 2 units of PRBCs for a baseline hemoglobin of 11.9, now 7.3. Her iron studies show a normal iron, a low TIBC of 246, and a low transferrin of 176. Plan: Transfuse 2 units, serial H/Hs, and monitor for anymore signs of bleeding. (4) H/O Helicobacter infection Impression: The patient states that she had a history of this in which she was treated by "lowering her blood sugar and being injected with something". Plan: Wait for testing and plan to treat if positive.
[2018-08-16] MEDS: POLYETHYLENE GLYCOL 3350 17 GM PACKET PO SCH (09:35)
--- NOTE | 2018-08-16 09:45 | PROVIDER PROGRESS NOTE ---
Assessment/Plan - Problem List (1) GI bleed Qualifiers: GI bleed type/associated pathology: gastric ulcer Qualified Code(s): K25.4 - Chronic or unspecified gastric ulcer with hemorrhage Assessment/Plan: Clinically the hemorrhage is resolving, with no signs of recurrent bleeding. Rec: continue PPI infusion for a total of 48 hours, then transition to oral high dose PPI therapy; advance diet as tolerated; transfuse prn sx; await H. pylori testing and treat if +. - Current Meds Current Meds: Current Medications Generic Name Dose Route Start Last Admin Trade Name Freq PRN Reason Stop Dose Admin Acetaminophen 100 mls @ 400 mls/hr 08/16/18 08:43 08/16/18 09:33 Ofirmev IV 08/16/18 10:00 400 mls/hr ONCE ANA Administration Polyethylene Glycol 17 gm 08/16/18 09:00 08/16/18 09:35 Miralax PO 17 gm DAILY ANA Administration Sodium Chloride 10 ml 08/15/18 17:00 08/16/18 09:29 Normal Saline Flush 0.9% IVP Not Given 0100,0900,1700 ANA - Lab Result Fish Bone Diagrams: 08/16/18 05:00 08/16/18 05:00 - Additional Planning My Orders: My Active Orders 08/15/18 18:55 JENNIFER TEST [RAPID] Stat 08/16/18 09:41 Lactated Ringers [Lr] 1,000 ml IV 50 mls/hr Subjective - Subjective Patient Reports: Feeling Better, Resting Comfortably, No Complaints (No N/V/hematemesis; no bm's since procedure last night.) Nursing Reports: No Complaints Objective Vital Signs: Vital Signs - 24 hr 08/15/18 08/15/18 08/15/18 12:21 13:30 16:00 Temperature 36.3 C L Heart Rate 87 78 Heart Rate [ 86 Brachial] Respiratory 18 20 20 Rate Blood Pressure 129/71 128/65 Blood Pressure 127/42 L [Right Brachial artery] O2 Saturation 95 97 98 08/15/18 08/15/18 08/15/18 16:07 17:05 17:31 Temperature 36.3 C L Heart Rate 86 Heart Rate [ 59 L 73 Brachial] Respiratory 18 12 14 Rate Blood Pressure Blood Pressure 146/36 H 140/54 H [Right Brachial artery] O2 Saturation 98 99 100 08/15/18 08/15/18 08/15/18 17:45 18:00 19:08 Temperature 36.5 C 37.0 C Heart Rate Heart Rate [ 78 72 Brachial] Respiratory 14 12 14 Rate Blood Pressure Blood Pressure 154/57 H 157/61 H 113/32 L [Right Brachial artery] O2 Saturation 99 99 96 08/15/18 08/16/18 08/16/18 20:24 00:05 04:35 Temperature 36.7 C 36.6 C 37.0 C Heart Rate Heart Rate [ 70 73 75 Brachial] Respiratory 16 16 16 Rate Blood Pressure Blood Pressure 140/49 H 124/37 L 131/41 H [Right Brachial artery] O2 Saturation 98 98 97 08/16/18 08:00 Temperature 37.2 C Heart Rate Heart Rate [ 75 Brachial] Respiratory 16 Rate Blood Pressure Blood Pressure 154/50 H [Right Brachial artery] O2 Saturation 97 Oxygen O2 Source Room air I&O (Last 24 Hrs): Intake and Output Totals x24h 08/14/18 08/15/18 08/16/18 23:59 23:59 23:59 Intake Total 1650 1100 Output Total 675 650 Balance 975 450 General: Alert, Oriented x3, Cooperative, No acute distress Neuro: Alert Abdomen: Soft, No tenderness, No hepatospenomegaly, No masses Extremities: No edema, No tenderness/swelling - Results Results: Laboratory Results WBC 8.6 x10^3/uL (4.8-10.8) 08/16/18 05:00 RBC 2.38 10^6/uL (4.20-5.40) L 08/16/18 05:00 Hgb 7.3 g/dL (12.0-16.0) L 08/16/18 05:00 Hct 21.7 % (37.0-47.0) L 08/16/18 05:00 MCV 91.1 fL (81.0-99.0) 08/16/18 05:00 MCH 30.9 pg (27.0-31.0) 08/16/18 05:00 MCHC 33.9 g/dL (32.0-36.0) 08/16/18 05:00 RDW 13.7 % (12.0-15.0) 08/16/18 05:00 Plt Count 283 10^3/uL (130-450) 08/16/18 05:00 MPV 7.3 fL (7.9-10.8) L 08/16/18 05:00 Neut # (Auto) 5.8 10^3/uL (1.5-6.6) 08/16/18 05:00 Lymph # (Auto) 2.0 10^3/uL (1.5-3.5) 08/16/18 05:00 [place] # (Auto) 0.7 10^3/uL (0.0-1.0) 08/16/18 05:00 Eos # (Auto) 0.1 10^3/uL (0.0-0.7) 08/16/18 05:00 Baso # (Auto) 0.0 10^3/uL (0.0-0.1) 08/16/18 05:00 Absolute Nucleated RBC 0.01 x10^3/uL 08/16/18 05:00 Nucleated RBC % 0.1 /100WBC 08/16/18 05:00 PT 12.7 secs (9.9-12.6) H 08/15/18 17:17 INR 1.1 (0.8-1.2) 08/15/18 17:17 APTT 23.5 secs (24.9-33.3) L 08/15/18 17:17 Sodium 140 mmol/L (135-145) 08/16/18 05:00 Potassium 4.0 mmol/L (3.5-5.0) 08/16/18 05:00 Chloride 112 mmol/L (101-111) H 08/16/18 05:00 Carbon Dioxide 23 mmol/L (21-32) 08/16/18 05:00 Anion Gap 5.0 (6-13) L 08/16/18 05:00 BUN 31 mg/dL (6-20) H 08/16/18 05:00 Creatinine 0.6 mg/dL (0.4-1.0) 08/16/18 05:00 Estimated GFR (MDRD) 97 (>89) 08/16/18 05:00 Glucose 99 mg/dL (70-100) 08/16/18 05:00 POC Whole Bld Glucose 150 mg/dL (70 - 100) H 08/15/18 17:19 Lactic Acid 0.9 mmol/L (0.5-2.2) 08/15/18 23:43 Calcium 7.4 mg/dL (8.5-10.3) L 08/16/18 05:00 Iron 74 ug/dL (28-170) 08/15/18 20:40 TIBC 246 ug/dL (250-450) L 08/15/18 20:40 % Saturation 30 % (20-50) 08/15/18 20:40 Transferrin 176 mg/dL (192-382) L 08/15/18 20:40 Total Bilirubin 0.4 mg/dL (0.2-1.0) 08/16/18 05:00 GGT 11 IU/L (8-38) 08/15/18 20:40 AST 22 IU/L (10-42) 08/16/18 05:00 ALT 20 IU/L (10-60) 08/16/18 05:00 Alkaline Phosphatase 41 IU/L (42-121) L 08/16/18 05:00 Troponin I < 0.04 ng/mL (<0.49) 08/15/18 17:17 Total Protein 4.3 g/dL (6.7-8.2) L 08/16/18 05:00 Albumin 2.6 g/dL (3.2-5.5) L 08/16/18 05:00 Globulin 1.7 g/dL (2.1-4.2) L 08/16/18 05:00 Albumin/Globulin Ratio 1.5 (1.0-2.2) 08/16/18 05:00 Lipase 39 U/L (22-51) 08/15/18 12:35 TSH 2.68 uIU/mL (0.34-5.60) 08/15/18 20:40 Urine Color YELLOW 08/15/18 21:42 Urine Clarity CLEAR (CLEAR) 08/15/18 21:42 Urine pH 5.5 PH (5.0-7.5) 08/15/18 21:42 Ur Specific [place] 1.010 (1.002-1.030) 08/15/18 21:42 Urine Protein NEGATIVE mg/dL (NEGATIVE) 08/15/18 21:42 Urine Glucose (UA) NEGATIVE mg/dL (NEGATIVE) 08/15/18 21:42 Urine Ketones NEGATIVE mg/dL (NEGATIVE) 08/15/18 21:42 Urine Occult Blood NEGATIVE (NEGATIVE) 08/15/18 21:42 Urine Nitrite NEGATIVE (NEGATIVE) 08/15/18 21:42 Urine Bilirubin NEGATIVE (NEGATIVE) 08/15/18 21:42 Urine Urobilinogen 0.2 (NORMAL) E.U./dL (NORMAL) 08/15/18 21:42 Ur Leukocyte Esterase NEGATIVE (NEGATIVE) 08/15/18 21:42 Ur Microscopic Review NOT INDICATED 08/15/18 21:42 Urine Culture Comments NOT INDICATED 08/15/18 21:42 Ethyl Alcohol < 5.0 mg/dL 08/15/18 12:35 Blood Type B NEGATIVE 08/15/18 12:35 Blood Type Recheck B NEGATIVE 08/15/18 23:43 Antibody Screen NEGATIVE 08/15/18 12:35 ABX Reporting Has patient been on IV antibiotics over the past 48 hours?: No
[2018-08-16] MEDS ORDERED: SODIUM CHLORIDE 0.9% 500 ML IV ONE (17:08)
[2018-08-16] MEDS ORDERED: FUROSEMIDE 20 MG/2 ML VIAL IVP ONE (17:36)
[2018-08-17] MEDS: SODIUM CHLORIDE FLUSH 0.9% 10 ML SYRINGE IVP SCH ×3 (00:02→15:53)
[2018-08-17] MEDS: LACTATED RINGERS 1,000 ML IV SCH (02:17)
[2018-08-17 06:35] LABS: BASOPHILS # (AUTO) 0.1 10^3/uL (0.0-0.1); BASOPHILS % (AUTO) 0.8 %; EOSINOPHILS # (AUTO) 0.2 10^3/uL (0.0-0.7); EOSINOPHILS % (AUTO) 1.9 %; LYMPHOCYTES % (AUTO) 21.5 %; MEAN CORPUSCULAR HEMOGLOBIN 31.8 pg (27.0-31.0); MEAN CORPUSCULAR HGB CONC 34.6 g/dL (32.0-36.0); MEAN CORPUSCULAR VOLUME 91.7 fL (81.0-99.0); MEAN PLATELET VOLUME 7.5 fL (7.9-10.8); MONOCYTES # (AUTO) 0.6 10^3/uL (0.0-1.0); MONOCYTES % (AUTO) 6.8 %; NEUTROPHILS # (AUTO) 6.3 10^3/uL (1.5-6.6); PLT - PLATELET COUNT 217 10^3/uL (130-450); RED BLOOD COUNT 2.08 10^6/uL (4.20-5.40); RED CELL DISTRIBUTION WIDTH 14.6 % (12.0-15.0); WHITE BLOOD COUNT 9.1 x10^3/uL (4.8-10.8)
[2018-08-17 06:38] LABS: HGB - HEMOGLOBIN 6.6 g/dL (12.0-16.0)
[2018-08-17 06:40] LABS: ALBUMIN 2.3 g/dL (3.2-5.5); ALBUMIN/GLOBULIN RATIO 1.5 (1.0-2.2); BILIRUBIN,TOTAL 0.5 mg/dL (0.2-1.0); CALCIUM 7.1 mg/dL (8.5-10.3); CREATININE 0.5 mg/dL (0.4-1.0); TOTAL PROTEIN 3.8 g/dL (6.7-8.2)
--- NOTE | 2018-08-17 08:22 | PROVIDER PROGRESS NOTE ---
Assessment/Plan - Problem List (1) GI bleed Qualifiers: GI bleed type/associated pathology: gastric ulcer Qualified Code(s): K25.4 - Chronic or unspecified gastric ulcer with hemorrhage Assessment/Plan: H/H has dropped without clinical evidence of active bleeding; suspect due to equilibration/hydration; rec: advance diet, transfuse again, ow continue present management of PPI therapy, observation. - Current Meds Current Meds: Current Medications Generic Name Dose Route Start Last Admin Trade Name Rick PRN Reason Stop Dose Admin Polyethylene Glycol 17 gm 08/16/18 09:00 08/16/18 09:35 Miralax PO 17 gm DAILY ANA Administration Sodium Chloride 10 ml 08/15/18 17:00 08/17/18 00:02 Normal Saline Flush 0.9% IVP 10 ml 0100,0900,1700 ANA Administration - Lab Result Lab results reviewed: Yes Fish Bone Diagrams: 08/17/18 06:00 08/17/18 06:00 - Additional Planning Condition/Complexity: Stable My Orders: My Active Orders 08/17/18 Breakfast Full Liquid Diet [DIET] Plan Discussed with:: Patient Time Spent: 15-30 minutes Subjective - Subjective Patient Reports: Resting Comfortably (no N/V, abd pain; had 2 dark brown/black bm's yesterday, most recently at noon yesterday; no bm's since; voiding well no w; no dizziness/syncope) Objective Vital Signs: Vital Signs - 24 hr 08/16/18 08/16/18 08/16/18 12:05 14:09 14:27 Temperature 36.8 C 37.3 C 37.2 C Heart Rate 75 69 Heart Rate [ 70 Brachial] Respiratory 16 16 14 Rate Blood Pressure 125/45 L 119/38 L Blood Pressure 138/49 H [Right Brachial artery] O2 Saturation 97 08/16/18 08/16/18 08/16/18 15:46 16:54 18:33 Temperature 36.9 C 37.3 C 37.0 C Heart Rate 80 75 Heart Rate [ 78 Brachial] Respiratory 16 14 14 Rate Blood Pressure 167/51 H 145/39 H Blood Pressure 157/62 H [Right Brachial artery] O2 Saturation 98 08/16/18 08/16/18 08/16/18 18:45 21:35 23:52 Temperature 37.2 C 36.9 C 37.3 C Heart Rate 74 71 Heart Rate [ 71 Brachial] Respiratory 12 12 18 Rate Blood Pressure 130/37 L 121/43 L Blood Pressure 124/42 L [Right Brachial artery] O2 Saturation 97 08/17/18 07:44 Temperature 36.8 C Heart Rate Heart Rate [ 80 Brachial] Respiratory 16 Rate Blood Pressure Blood Pressure 140/49 H [Right Brachial artery] O2 Saturation 99 Oxygen O2 Source Room air I&O (Last 24 Hrs): Intake and Output Totals x24h 08/15/18 08/16/18 08/17/18 23:59 23:59 23:59 Intake Total 1650 4429 1094.167 Output Total 675 2255 600 Balance 975 2174 494.167 General: Alert, Oriented x3, Cooperative, No acute distress Abdomen: Normal bowel sounds, Soft, No tenderness, No hepatospenomegaly, No masses - Results Results: Laboratory Results WBC 9.1 x10^3/uL (4.8-10.8) 08/17/18 06:00 RBC 2.08 10^6/uL (4.20-5.40) L 08/17/18 06:00 Hgb 6.6 g/dL (12.0-16.0) L* 08/17/18 06:00 Hct 19.1 % (37.0-47.0) L* 08/17/18 06:00 MCV 91.7 fL (81.0-99.0) 08/17/18 06:00 MCH 31.8 pg (27.0-31.0) H 08/17/18 06:00 MCHC 34.6 g/dL (32.0-36.0) 08/17/18 06:00 RDW 14.6 % (12.0-15.0) 08/17/18 06:00 Plt Count 217 10^3/uL (130-450) 08/17/18 06:00 MPV 7.5 fL (7.9-10.8) L 08/17/18 06:00 Neut # (Auto) 6.3 10^3/uL (1.5-6.6) 08/17/18 06:00 Lymph # (Auto) 2.0 10^3/uL (1.5-3.5) 08/17/18 06:00 [place] # (Auto) 0.6 10^3/uL (0.0-1.0) 08/17/18 06:00 Eos # (Auto) 0.2 10^3/uL (0.0-0.7) 08/17/18 06:00 Baso # (Auto) 0.1 10^3/uL (0.0-0.1) 08/17/18 06:00 Absolute Nucleated RBC 0.03 x10^3/uL 08/17/18 06:00 Nucleated RBC % 0.3 /100WBC 08/17/18 06:00 PT 12.7 secs (9.9-12.6) H 08/15/18 17:17 INR 1.1 (0.8-1.2) 08/15/18 17:17 APTT 23.5 secs (24.9-33.3) L 08/15/18 17:17 Sodium 139 mmol/L (135-145) 08/17/18 06:00 Potassium 3.7 mmol/L (3.5-5.0) 08/17/18 06:00 Chloride 113 mmol/L (101-111) H 08/17/18 06:00 Carbon Dioxide 23 mmol/L (21-32) 08/17/18 06:00 Anion Gap 3.0 (6-13) L 08/17/18 06:00 BUN 35 mg/dL (6-20) H 08/17/18 06:00 Creatinine 0.5 mg/dL (0.4-1.0) 08/17/18 06:00 Estimated GFR (MDRD) 120 (>89) 08/17/18 06:00 Glucose 102 mg/dL (70-100) H 08/17/18 06:00 POC Whole Bld Glucose 150 mg/dL (70 - 100) H 08/15/18 17:19 Lactic Acid 0.9 mmol/L (0.5-2.2) 08/15/18 23:43 Calcium 7.1 mg/dL (8.5-10.3) L 08/17/18 06:00 Iron 74 ug/dL (28-170) 08/15/18 20:40 TIBC 246 ug/dL (250-450) L 08/15/18 20:40 % Saturation 30 % (20-50) 08/15/18 20:40 Transferrin 176 mg/dL (192-382) L 08/15/18 20:40 Total Bilirubin 0.5 mg/dL (0.2-1.0) 08/17/18 06:00 GGT 11 IU/L (8-38) 08/15/18 20:40 AST 20 IU/L (10-42) 08/17/18 06:00 ALT 20 IU/L (10-60) 08/17/18 06:00 Alkaline Phosphatase 28 IU/L (42-121) L 08/17/18 06:00 Troponin I < 0.04 ng/mL (<0.49) 08/15/18 17:17 Total Protein 3.8 g/dL (6.7-8.2) L 08/17/18 06:00 Albumin 2.3 g/dL (3.2-5.5) L 08/17/18 06:00 Globulin 1.5 g/dL (2.1-4.2) L 08/17/18 06:00 Albumin/Globulin Ratio 1.5 (1.0-2.2) 08/17/18 06:00 Lipase 39 U/L (22-51) 08/15/18 12:35 TSH 2.68 uIU/mL (0.34-5.60) 08/15/18 20:40 Urine Color YELLOW 08/15/18 21:42 Urine Clarity CLEAR (CLEAR) 08/15/18 21:42 Urine pH 5.5 PH (5.0-7.5) 08/15/18 21:42 Ur Specific [place] 1.010 (1.002-1.030) 08/15/18 21:42 Urine Protein NEGATIVE mg/dL (NEGATIVE) 08/15/18 21:42 Urine Glucose (UA) NEGATIVE mg/dL (NEGATIVE) 08/15/18 21:42 Urine Ketones NEGATIVE mg/dL (NEGATIVE) 08/15/18 21:42 Urine Occult Blood NEGATIVE (NEGATIVE) 08/15/18 21:42 Urine Nitrite NEGATIVE (NEGATIVE) 08/15/18 21:42 Urine Bilirubin NEGATIVE (NEGATIVE) 08/15/18 21:42 Urine Urobilinogen 0.2 (NORMAL) E.U./dL (NORMAL) 08/15/18 21:42 Ur Leukocyte Esterase NEGATIVE (NEGATIVE) 08/15/18 21:42 Ur Microscopic Review NOT INDICATED 08/15/18 21:42 Urine Culture Comments NOT INDICATED 08/15/18 21:42 Ethyl Alcohol < 5.0 mg/dL 08/15/18 12:35 Blood Type B NEGATIVE 08/15/18 12:35 Blood Type Recheck B NEGATIVE 08/15/18 23:43 Antibody Screen NEGATIVE 08/15/18 12:35 Crossmatch IS Only See Detail 08/15/18 12:35 ABX Reporting Has patient been on IV antibiotics over the past 48 hours?: No
[2018-08-17] MEDS: POLYETHYLENE GLYCOL 3350 17 GM PACKET PO SCH (09:20)
[2018-08-17] MEDS: PANTOPRAZOLE 40 MG VIAL IVP SCH ×2 (09:50→21:03)
[2018-08-17] MEDS: [UNRECOGNIZED DRUG - OTHER] PO SCH (09:50)
[2018-08-17 16:21] LABS: BASOPHILS # (AUTO) 0.1 10^3/uL (0.0-0.1); BASOPHILS % (AUTO) 0.6 %; EOSINOPHILS # (AUTO) 0.1 10^3/uL (0.0-0.7); EOSINOPHILS % (AUTO) 1.4 %; HGB - HEMOGLOBIN 9.2 g/dL (12.0-16.0); LYMPHOCYTES # (AUTO) 2.5 10^3/uL (1.5-3.5); LYMPHOCYTES % (AUTO) 25.1 %; MEAN CORPUSCULAR HEMOGLOBIN 32.1 pg (27.0-31.0); MEAN CORPUSCULAR HGB CONC 35.8 g/dL (32.0-36.0); MEAN CORPUSCULAR VOLUME 89.6 fL (81.0-99.0); MEAN PLATELET VOLUME 7.2 fL (7.9-10.8); MONOCYTES # (AUTO) 0.8 10^3/uL (0.0-1.0); MONOCYTES % (AUTO) 8.6 %; NEUTROPHILS # (AUTO) 6.3 10^3/uL (1.5-6.6); NEUTROPHILS % (AUTO) 64.3 %; PLT - PLATELET COUNT 201 10^3/uL (130-450); RED BLOOD COUNT 2.86 10^6/uL (4.20-5.40); RED CELL DISTRIBUTION WIDTH 14.9 % (12.0-15.0); WHITE BLOOD COUNT 9.8 x10^3/uL (4.8-10.8)
--- NOTE | 2018-08-17 16:56 | PROVIDER PROGRESS NOTE ---
Subjective - Prog Note Date Prog Note Date: 08/17/18 - Subjective Pt reports feeling: Improved Subjective: pt report she feel better. she denies CP, SOB, syncope, pre-syncope. pt still report she had black stool. Current Medications - Current Medications Current Medications: Active Medications Diphenhydramine HCl (Benadryl Inj) 25 mg IVP Q6H PRN PRN Reason: Allergy Symptoms Pantoprazole Sodium (Protonix) 40 mg IVP BID [facility] Last Admin: 08/17/18 09:50 Dose: 40 mg Pork Thyroid [Nature (-Throid] 16.25 Mg) 1 each PO DAILY [facility] Last Admin: 08/17/18 09:50 Dose: 1 each Sodium Chloride (Normal Saline Flush 0.9%) 10 ml IVP PRN PRN PRN Reason: NEEDED PER PROVIDER ORDERS Sodium Chloride (Normal Saline Flush 0.9%) 10 ml IVP 0100,0900,1700 [facility] Last Admin: 08/17/18 09:51 Dose: 10 ml Thyroid,Pork [Nature-Throid] 16.25 mg PO DAILY 03/26/15 Estradiol 0.25 mg TOP DAILY 08/16/18 Naltrexone HCl 3 mg PO QPM 08/16/18 Testosterone 4 mg TOP DAILY 08/16/18 Objective - Vital Signs/Intake & Output Reviewed Vital Signs: Yes Vital Signs: Vital Signs x48h Temp Pulse Resp BP 08/17/18 15:53 37.0 C 68 12 135/48 H 08/17/18 13:15 37.1 C 76 16 119/36 L 08/17/18 12:57 37.0 C 74 16 125/42 L 08/17/18 12:54 37.0 C 74 16 125/42 L 08/17/18 11:01 37.4 C 92 16 128/44 L 08/17/18 10:45 37.2 C 83 16 139/39 H Intake & Output: Intake & Output 08/14/18 08/15/18 08/16/18 08/17/18 23:59 23:59 23:59 23:59 Intake Total 1650 4429 2061.167 Output Total 675 2255 1000 Balance 975 2174 1061.167 - Objective General Appearance: positive: No acute distress, Alert. negative: Lethargic Eyes Bilateral: positive: Normal inspection, PERRL, No lid inflammation, Conjunctivae nml ENT: positive: ENT inspection nml, Pharynx nml, No signs of dehydration. negative: Purulent nasal drainage, Pharyngeal erythema, Oral lesions Neck: positive: Nml inspection, Thyroid nml, No JVD, Trachea midline. negative: Thyromegaly, Lymphadenopathy (R), Lymphadenopathy (L), Stiff neck, Swell ing/bruising, Tracheal deviation Respiratory: positive: Chest non-tender, No respiratory distress, Breath sounds nml. negative: Wheezes, Rales, Rhonchi Cardiovascular: positive: Regular rate & rhythm, No murmur, No gallop. negative: Irregularly irregular, Extrasystoles, Tachycardia, Bradycardia, JVD present, Systolic murmur, Diastolic murmur Peripheral Pulses: 2+ Radial (R), 2+ Radial (L), 2+ Dorsalis pedis (R), 2+ Dors amado pedis (L) Abdomen: positive: Non-tender, No organomegaly, Nml bowel sounds, No distention. negative: Guarding, Rebound Back: positive: Nml inspection. negative: CVA tenderness (R), CVA tenderness (L) Skin: positive: Color nml, No rash, Warm, Dry. negative: Cyanosis, Diaphoresis, Pallor Extremities: positive: Non-tender, Full ROM, Nml appearance. negative: Calf tenderness, Joint swelling, Ele's sign/cords Neurologic/Psychiatric: positive: Oriented x3, Motor nml, Sensation nml. negative: Weakness, Sensory loss, Facial droop, Slurred/abnml speech, Depressed mood/affect - Lab Results Fish Bones: 08/17/18 16:11 08/17/18 06:00 Other Labs: Lab Results x24hrs 08/17/18 08/17/18 08/17/18 Range/Units 16:11 06:00 06:00 WBC 9.8 9.1 (4.8-10.8) x10^3/uL RBC 2.86 L 2.08 L (4.20-5.40) 10^6/uL Hgb 9.2 L 6.6 L* (12.0-16.0) g/dL Hct 25.6 L 19.1 L* (37.0-47.0) % MCV 89.6 91.7 (81.0-99.0) fL MCH 32.1 H 31.8 H (27.0-31.0) pg MCHC 35.8 34.6 (32.0-36.0) g/dL RDW 14.9 14.6 (12.0-15.0) % Plt Count 201 217 (130-450) 10^3/uL MPV 7.2 L 7.5 L (7.9-10.8) fL Neut # (Auto) 6.3 6.3 (1.5-6.6) 10^3/uL Lymph # (Auto) 2.5 2.0 (1.5-3.5) 10^3/uL [place] # (Auto) 0.8 0.6 (0.0-1.0) 10^3/uL Eos # (Auto) 0.1 0.2 (0.0-0.7) 10^3/uL Baso # (Auto) 0.1 0.1 (0.0-0.1) 10^3/uL Absolute Nucleated RBC 0.02 0.03 x10^3/uL Nucleated RBC % 0.2 0.3 /100WBC Sodium 139 (135-145) mmol/L Potassium 3.7 (3.5-5.0) mmol/L Chloride 113 H (101-111) mmol/L Carbon Dioxide 23 (21-32) mmol/L Anion Gap 3.0 L (6-13) BUN 35 H (6-20) mg/dL Creatinine 0.5 (0.4-1.0) mg/dL Estimated GFR (MDRD) 120 (>89) Glucose 102 H (70-100) mg/dL Calcium 7.1 L (8.5-10.3) mg/dL Total Bilirubin 0.5 (0.2-1.0) mg/dL AST 20 (10-42) IU/L ALT 20 (10-60) IU/L Alkaline Phosphatase 28 L (42-121) IU/L Total Protein 3.8 L (6.7-8.2) g/dL Albumin 2.3 L (3.2-5.5) g/dL Globulin 1.5 L (2.1-4.2) g/dL Albumin/Globulin Ratio 1.5 (1.0-2.2) Blood Type Antibody Screen Crossmatch IS Only 08/15/18 08/15/18 Range/Units 12:35 12:35 WBC (4.8-10.8) x10^3/uL RBC (4.20-5.40) 10^6/uL Hgb (12.0-16.0) g/dL Hct (37.0-47.0) % MCV (81.0-99.0) fL MCH (27.0-31.0) pg MCHC (32.0-36.0) g/dL RDW (12.0-15.0) % Plt Count (130-450) 10^3/uL MPV (7.9-10.8) fL Neut # (Auto) (1.5-6.6) 10^3/uL Lymph # (Auto) (1.5-3.5) 10^3/uL [place] # (Auto) (0.0-1.0) 10^3/uL Eos # (Auto) (0.0-0.7) 10^3/uL Baso # (Auto) (0.0-0.1) 10^3/uL Absolute Nucleated RBC x10^3/uL Nucleated RBC % /100WBC Sodium (135-145) mmol/L Potassium (3.5-5.0) mmol/L Chloride (101-111) mmol/L Carbon Dioxide (21-32) mmol/L Anion Gap (6-13) BUN (6-20) mg/dL Creatinine (0.4-1.0) mg/dL Estimated GFR (MDRD) (>89) Glucose (70-100) mg/dL Calcium (8.5-10.3) mg/dL Total Bilirubin (0.2-1.0) mg/dL AST (10-42) IU/L ALT (10-60) IU/L Alkaline Phosphatase (42-121) IU/L Total Protein (6.7-8.2) g/dL Albumin (3.2-5.5) g/dL Globulin (2.1-4.2) g/dL Albumin/Globulin Ratio (1.0-2.2) Blood Type Cancelled Cancelled Antibody Screen Cancelled Cancelled Crossmatch IS Only See Detail See Detail ABX Reporting Has patient been on IV antibiotics over the past 48 hours?: No Assessment/Plan - Problem List (1) GI bleed Impression: Impression: 08/17 pt's HGB continue to drop. two unit blood was order to pt H&H to monitor discuss with Dr. Ga, pt may need re-EGD if continue to have black stool and HGB drop, start NPO after midnight The patient admits to vomiting "about a mouth full" of blood this morning. She also had frequent stools beginning at 6:15AM, and another about 30 minutes later. She states that her stool appeared black, but thought it was due to eating too many blueberries yesterday. She states that starting last Tuesday 3 days ago, she noticed increased heartburn symptoms. The patient had a syncopal episode soon after arriving to the nursing floor in which she lost consciousness, a code blue was called and she filled the bedside commode with black/maroon liquid stool. The patient underwent an EGD with Dr. Lacho Ga and preliminary findings suggested there was a likely source of bleeding as some tissues were noted to be discolored. Biopsies were taken, and the patient will remain on a protonix gtt for at least 48 hours. Plan: Give 2 units of PRBCs tonight, continue protonix gtt, clear liquid diet, and possibly home tomorrow if the patient remains stable. (2) Abdominal pain Impression: 08/17 pt denies abdominal pain at this point. continue to monitor, advance the diet as tolerated. The patient complains of LUQ and RUQ abdominal pain that began on the morning prior to admission. She had 2 loose, black stools and went to her PCP who is a ecommerce project manager and concluded that she has "food poisoning". She went home and vomited a mouth full of bright red blood, so called 911. Once in the ED she continued to complain of abdominal pain as severe. Today she is post EGD, and remains on a protonix gtt. Upon exam, she denies any abdominal pain and her abdomen is soft with good bowel sounds throughout. Plan: Continue to monitor, and a clear liquid diet for now. 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 She may have had ulcers creeping up on her, and denies recent bleeding or a cancer history. She continues to appear pale, has intermettent shortness of breath that becomes worse with activity, and has continued weakness with fatigue. She is agreeable to a blood transfusion, so she will get 2 units of PRBCs for a baseline hemoglobin of 11.9, now 7.3. Her iron studies show a normal iron, a low TIBC of 246, and a low transferrin of 176. Plan: Transfuse 2 units, serial H/Hs, and monitor for anymore signs of bleeding. (4) H/O Helicobacter infection Impression: [employer] test negative, biopsy is pending, will follow up The patient states that she had a history of this in which she was treated by "lowering her blood sugar and being injected with something". Plan: Wait for testing and plan to treat if positive. Qualifiers: GI bleed type/associated pathology: gastric ulcer Qualified Code(s): K25.4 - Chronic or unspecified gastric ulcer with hemorrhage
--- NOTE | 2018-08-17 17:04 | PROVIDER PROGRESS NOTE ---
Assessment/Plan - Problem List (1) GI bleed Qualifiers: Qualified Code(s): K25.4 - Chronic or unspecified gastric ulcer with hemorrhage Assessment/Plan: Possible rebleeding; currently hemodynamically stable with no c/o and nice response to 2 units prbcs with Hgb now 9.2, after total of 4 units since admission; Rec: continue present management; repeat EGD if H/H drops signi ficantly once again. Discussed with pt, family and Mr. Campbell, all of which agree with this plan. - Current Meds Current Meds: Current Medications Generic Name Dose Route Start Last Admin Trade Name Freq PRN Reason Stop Dose Admin Pantoprazole Sodium 40 mg 08/17/18 09:00 08/17/18 09:50 Protonix IVP 40 mg BID ANA Administration Pork Thyroid [Nature 1 each 08/17/18 09:00 08/17/18 09:50 -Throid] 16.25 Mg PO 1 each DAILY ANA Administration Sodium Chloride 10 ml 08/15/18 17:00 08/17/18 09:51 Normal Saline Flush 0.9% IVP 10 ml 0100,0900,1700 ANA Administration - Lab Result Fish Bone Diagrams: 08/17/18 16:11 08/17/18 06:00 - Additional Planning Condition/Complexity: Stable My Orders: My Active Orders 08/17/18 Lunch Regular Diet [DIET] Plan Discussed with:: Patient, Family Time Spent: 15-30 minutes Subjective - Subjective Patient Reports: Resting Comfortably (wants to get up and take a shower; 3 black pasty bm's today; voiding well; no abd pain, N/V.) Objective Vital Signs: Vital Signs - 24 hr 08/16/18 08/16/18 08/16/18 18:33 18:45 21:35 Temperature 37.0 C 37.2 C 36.9 C Heart Rate 75 74 71 Heart Rate [ Brachial] Respiratory 14 12 12 Rate Blood Pressure 145/39 H 130/37 L 121/43 L Blood Pressure [Right Brachial artery] O2 Saturation 08/16/18 08/17/18 08/17/18 23:52 07:44 10:45 Temperature 37.3 C 36.8 C 37.2 C Heart Rate 83 Heart Rate [ 71 80 Brachial] Respiratory 18 16 16 Rate Blood Pressure 139/39 H Blood Pressure 124/42 L 140/49 H [Right Brachial artery] O2 Saturation 97 99 08/17/18 08/17/18 08/17/18 11:01 12:54 12:57 Temperature 37.4 C 37.0 C 37.0 C Heart Rate 92 74 74 Heart Rate [ Brachial] Respiratory 16 16 16 Rate Blood Pressure 128/44 L 125/42 L 125/42 L Blood Pressure [Right Brachial artery] O2 Saturation 08/17/18 08/17/18 13:15 15:53 Temperature 37.1 C 37.0 C Heart Rate 76 68 Heart Rate [ Brachial] Respiratory 16 12 Rate Blood Pressure 119/36 L 135/48 H Blood Pressure [Right Brachial artery] O2 Saturation Oxygen O2 Source Room air I&O (Last 24 Hrs): Intake and Output Totals x24h 08/15/18 08/16/18 08/17/18 23:59 23:59 23:59 Intake Total 1650 4429 2061.167 Output Total 675 2255 1000 Balance 975 2174 1061.167 General: Alert, Oriented x3, Cooperative, No acute distress Abdomen: Soft, No tenderness, No hepatospenomegaly, No masses - Results Results: Laboratory Results WBC 9.8 x10^3/uL (4.8-10.8) 08/17/18 16:11 RBC 2.86 10^6/uL (4.20-5.40) L 08/17/18 16:11 Hgb 9.2 g/dL (12.0-16.0) L 08/17/18 16:11 Hct 25.6 % (37.0-47.0) L 08/17/18 16:11 MCV 89.6 fL (81.0-99.0) 08/17/18 16:11 MCH 32.1 pg (27.0-31.0) H 08/17/18 16:11 MCHC 35.8 g/dL (32.0-36.0) 08/17/18 16:11 RDW 14.9 % (12.0-15.0) 08/17/18 16:11 Plt Count 201 10^3/uL (130-450) 08/17/18 16:11 MPV 7.2 fL (7.9-10.8) L 08/17/18 16:11 Neut # (Auto) 6.3 10^3/uL (1.5-6.6) 08/17/18 16:11 Lymph # (Auto) 2.5 10^3/uL (1.5-3.5) 08/17/18 16:11 [place] # (Auto) 0.8 10^3/uL (0.0-1.0) 08/17/18 16:11 Eos # (Auto) 0.1 10^3/uL (0.0-0.7) 08/17/18 16:11 Baso # (Auto) 0.1 10^3/uL (0.0-0.1) 08/17/18 16:11 Absolute Nucleated RBC 0.02 x10^3/uL 08/17/18 16:11 Nucleated RBC % 0.2 /100WBC 08/17/18 16:11 PT 12.7 secs (9.9-12.6) H 08/15/18 17:17 INR 1.1 (0.8-1.2) 08/15/18 17:17 APTT 23.5 secs (24.9-33.3) L 08/15/18 17:17 Sodium 139 mmol/L (135-145) 08/17/18 06:00 Potassium 3.7 mmol/L (3.5-5.0) 08/17/18 06:00 Chloride 113 mmol/L (101-111) H 08/17/18 06:00 Carbon Dioxide 23 mmol/L (21-32) 08/17/18 06:00 Anion Gap 3.0 (6-13) L 08/17/18 06:00 BUN 35 mg/dL (6-20) H 08/17/18 06:00 Creatinine 0.5 mg/dL (0.4-1.0) 08/17/18 06:00 Estimated GFR (MDRD) 120 (>89) 08/17/18 06:00 Glucose 102 mg/dL (70-100) H 08/17/18 06:00 POC Whole Bld Glucose 150 mg/dL (70 - 100) H 08/15/18 17:19 Lactic Acid 0.9 mmol/L (0.5-2.2) 08/15/18 23:43 Calcium 7.1 mg/dL (8.5-10.3) L 08/17/18 06:00 Iron 74 ug/dL (28-170) 08/15/18 20:40 TIBC 246 ug/dL (250-450) L 08/15/18 20:40 % Saturation 30 % (20-50) 08/15/18 20:40 Transferrin 176 mg/dL (192-382) L 08/15/18 20:40 Total Bilirubin 0.5 mg/dL (0.2-1.0) 08/17/18 06:00 GGT 11 IU/L (8-38) 08/15/18 20:40 AST 20 IU/L (10-42) 08/17/18 06:00 ALT 20 IU/L (10-60) 08/17/18 06:00 Alkaline Phosphatase 28 IU/L (42-121) L 08/17/18 06:00 Troponin I < 0.04 ng/mL (<0.49) 08/15/18 17:17 Total Protein 3.8 g/dL (6.7-8.2) L 08/17/18 06:00 Albumin 2.3 g/dL (3.2-5.5) L 08/17/18 06:00 Globulin 1.5 g/dL (2.1-4.2) L 08/17/18 06:00 Albumin/Globulin Ratio 1.5 (1.0-2.2) 08/17/18 06:00 Lipase 39 U/L (22-51) 08/15/18 12:35 TSH 2.68 uIU/mL (0.34-5.60) 08/15/18 20:40 Urine Color YELLOW 08/15/18 21:42 Urine Clarity CLEAR (CLEAR) 08/15/18 21:42 Urine pH 5.5 PH (5.0-7.5) 08/15/18 21:42 Ur Specific [place] 1.010 (1.002-1.030) 08/15/18 21:42 Urine Protein NEGATIVE mg/dL (NEGATIVE) 08/15/18 21:42 Urine Glucose (UA) NEGATIVE mg/dL (NEGATIVE) 08/15/18 21:42 Urine Ketones NEGATIVE mg/dL (NEGATIVE) 08/15/18 21:42 Urine Occult Blood NEGATIVE (NEGATIVE) 08/15/18 21:42 Urine Nitrite NEGATIVE (NEGATIVE) 08/15/18 21:42 Urine Bilirubin NEGATIVE (NEGATIVE) 08/15/18 21:42 Urine Urobilinogen 0.2 (NORMAL) E.U./dL (NORMAL) 08/15/18 21:42 Ur Leukocyte Esterase NEGATIVE (NEGATIVE) 08/15/18 21:42 Ur Microscopic Review NOT INDICATED 08/15/18 21:42 Urine Culture Comments NOT INDICATED 08/15/18 21:42 Ethyl Alcohol < 5.0 mg/dL 08/15/18 12:35 Blood Type B NEGATIVE 08/15/18 12:35 Blood Type Recheck B NEGATIVE 08/15/18 23:43 Antibody Screen NEGATIVE 08/15/18 12:35 Crossmatch IS Only See Detail 08/15/18 12:35 ABX Reporting Has patient been on IV antibiotics over the past 48 hours?: No
[2018-08-18] MEDS: SODIUM CHLORIDE FLUSH 0.9% 10 ML SYRINGE IVP SCH ×4 (00:24→23:51)
[2018-08-18 02:22] LABS: HGB - HEMOGLOBIN 8.8 g/dL (12.0-16.0)
[2018-08-18 06:26] LABS: BASOPHILS # (AUTO) 0.1 10^3/uL (0.0-0.1); BASOPHILS % (AUTO) 0.9 %; EOSINOPHILS # (AUTO) 0.3 10^3/uL (0.0-0.7); EOSINOPHILS % (AUTO) 4.1 %; HGB - HEMOGLOBIN 8.6 g/dL (12.0-16.0); LYMPHOCYTES # (AUTO) 1.7 10^3/uL (1.5-3.5); LYMPHOCYTES % (AUTO) 23.7 %; MEAN CORPUSCULAR HEMOGLOBIN 31.2 pg (27.0-31.0); MEAN CORPUSCULAR HGB CONC 34.6 g/dL (32.0-36.0); MEAN CORPUSCULAR VOLUME 90.1 fL (81.0-99.0); MEAN PLATELET VOLUME 7.2 fL (7.9-10.8); MONOCYTES # (AUTO) 0.6 10^3/uL (0.0-1.0); MONOCYTES % (AUTO) 7.5 %; NEUTROPHILS # (AUTO) 4.7 10^3/uL (1.5-6.6); NEUTROPHILS % (AUTO) 63.8 %; PLT - PLATELET COUNT 182 10^3/uL (130-450); RED BLOOD COUNT 2.77 10^6/uL (4.20-5.40); WHITE BLOOD COUNT 7.4 x10^3/uL (4.8-10.8)
[2018-08-18 06:38] LABS: ALBUMIN 2.4 g/dL (3.2-5.5); ALBUMIN/GLOBULIN RATIO 1.3 (1.0-2.2); BILIRUBIN,TOTAL 0.5 mg/dL (0.2-1.0); CALCIUM 7.3 mg/dL (8.5-10.3); CREATININE 0.6 mg/dL (0.4-1.0); TOTAL PROTEIN 4.2 g/dL (6.7-8.2)
--- NOTE | 2018-08-18 08:47 | PROVIDER PROGRESS NOTE ---
Assessment/Plan - Problem List (1) GI bleed Qualifiers: GI bleed type/associated pathology: gastric ulcer Qualified Code(s): K25.4 - Chronic or unspecified gastric ulcer with hemorrhage Assessment/Plan: Stable over night with no signs of recurrent bleeding. Rec: resume diet, oral high dose PPI therapy, continue observation today, home tomorrow if remains stable. - Current Meds Current Meds: Current Medications Generic Name Dose Route Start Last Admin Trade Name Freq PRN Reason Stop Dose Admin Pantoprazole Sodium 40 mg 08/17/18 09:00 08/17/18 21:03 Protonix IVP 40 mg BID ANA Administration Pork Thyroid [Nature 1 each 08/17/18 09:00 08/17/18 09:50 -Throid] 16.25 Mg PO 1 each DAILY ANA Administration Sodium Chloride 10 ml 08/15/18 14:12 08/17/18 21:03 Normal Saline Flush 0.9% IVP 10 ml PRN PRN Administration NEEDED PER PROVIDER ORDERS Sodium Chloride 10 ml 08/15/18 17:00 08/18/18 00:24 Normal Saline Flush 0.9% IVP 10 ml 0100,0900,1700 ANA Administration - Lab Result Lab results reviewed: Yes Fish Bone Diagrams: 08/18/18 06:20 08/18/18 06:20 - Additional Planning Condition/Complexity: Improved Plan Discussed with:: Patient Time Spent: 15-30 minutes Additional Planning Notes: Home tomorrow if continues to remain stable. Subjective - Subjective Patient Reports: Feeling Better, Resting Comfortably, No Complaints (hungry; one small formed black stool over past 12 hours; voiding well; no abd pain, N/V.) Objective Vital Signs: Vital Signs - 24 hr 08/17/18 08/17/18 08/17/18 10:45 11:01 12:54 Temperature 37.2 C 37.4 C 37.0 C Heart Rate 83 92 74 Heart Rate [ Brachial] Respiratory 16 16 16 Rate Blood Pressure 139/39 H 128/44 L 125/42 L Blood Pressure [Left Brachial artery] Blood Pressure [Right Brachial artery] O2 Saturation 08/17/18 08/17/18 08/17/18 12:57 13:15 15:53 Temperature 37.0 C 37.1 C 37.0 C Heart Rate 74 76 68 Heart Rate [ Brachial] Respiratory 16 16 12 Rate Blood Pressure 125/42 L 119/36 L 135/48 H Blood Pressure [Left Brachial artery] Blood Pressure [Right Brachial artery] O2 Saturation 08/17/18 08/18/18 08/18/18 15:55 00:00 07:47 Temperature 37.0 C 36.5 C 36.9 C Heart Rate Heart Rate [ 68 72 71 Brachial] Respiratory 12 16 18 Rate Blood Pressure Blood Pressure 137/56 H [Left Brachial artery] Blood Pressure 138/48 H 127/45 L [Right Brachial artery] O2 Saturation 98 98 97 Oxygen O2 Source Room air I&O (Last 24 Hrs): Intake and Output Totals x24h 08/16/18 08/17/18 08/18/18 23:59 23:59 23:59 Intake Total 4429 2631.167 Output Total 2255 1000 Balance 2174 1631.167 General: Alert, Oriented x3, Cooperative, No acute distress Abdomen: Soft, No tenderness, No hepatospenomegaly, No masses Extremities: No cyanosis, No edema, No tenderness/swelling - Results Results: Laboratory Results WBC 7.4 x10^3/uL (4.8-10.8) 08/18/18 06:20 RBC 2.77 10^6/uL (4.20-5.40) L 08/18/18 06:20 Hgb 8.6 g/dL (12.0-16.0) L 08/18/18 06:20 Hct 24.9 % (37.0-47.0) L 08/18/18 06:20 MCV 90.1 fL (81.0-99.0) 08/18/18 06:20 MCH 31.2 pg (27.0-31.0) H 08/18/18 06:20 MCHC 34.6 g/dL (32.0-36.0) 08/18/18 06:20 RDW 15.0 % (12.0-15.0) 08/18/18 06:20 Plt Count 182 10^3/uL (130-450) 08/18/18 06:20 MPV 7.2 fL (7.9-10.8) L 08/18/18 06:20 Neut # (Auto) 4.7 10^3/uL (1.5-6.6) 08/18/18 06:20 Lymph # (Auto) 1.7 10^3/uL (1.5-3.5) 08/18/18 06:20 [place] # (Auto) 0.6 10^3/uL (0.0-1.0) 08/18/18 06:20 Eos # (Auto) 0.3 10^3/uL (0.0-0.7) 08/18/18 06:20 Baso # (Auto) 0.1 10^3/uL (0.0-0.1) 08/18/18 06:20 Absolute Nucleated RBC 0.01 x10^3/uL 08/18/18 06:20 Nucleated RBC % 0.1 /100WBC 08/18/18 06:20 PT 12.7 secs (9.9-12.6) H 08/15/18 17:17 INR 1.1 (0.8-1.2) 08/15/18 17:17 APTT 23.5 secs (24.9-33.3) L 08/15/18 17:17 Sodium 138 mmol/L (135-145) 08/18/18 06:20 Potassium 3.7 mmol/L (3.5-5.0) 08/18/18 06:20 Chloride 109 mmol/L (101-111) 08/18/18 06:20 Carbon Dioxide 24 mmol/L (21-32) 08/18/18 06:20 Anion Gap 5.0 (6-13) L 08/18/18 06:20 BUN 15 mg/dL (6-20) 08/18/18 06:20 Creatinine 0.6 mg/dL (0.4-1.0) 08/18/18 06:20 Estimated GFR (MDRD) 97 (>89) 08/18/18 06:20 Glucose 100 mg/dL (70-100) 08/18/18 06:20 POC Whole Bld Glucose 150 mg/dL (70 - 100) H 08/15/18 17:19 Lactic Acid 0.9 mmol/L (0.5-2.2) 08/15/18 23:43 Calcium 7.3 mg/dL (8.5-10.3) L 08/18/18 06:20 Iron 74 ug/dL (28-170) 08/15/18 20:40 TIBC 246 ug/dL (250-450) L 08/15/18 20:40 % Saturation 30 % (20-50) 08/15/18 20:40 Transferrin 176 mg/dL (192-382) L 08/15/18 20:40 Total Bilirubin 0.5 mg/dL (0.2-1.0) 08/18/18 06:20 GGT 11 IU/L (8-38) 08/15/18 20:40 AST 20 IU/L (10-42) 08/18/18 06:20 ALT 21 IU/L (10-60) 08/18/18 06:20 Alkaline Phosphatase 32 IU/L (42-121) L 08/18/18 06:20 Troponin I < 0.04 ng/mL (<0.49) 08/15/18 17:17 Total Protein 4.2 g/dL (6.7-8.2) L 08/18/18 06:20 Albumin 2.4 g/dL (3.2-5.5) L 08/18/18 06:20 Globulin 1.8 g/dL (2.1-4.2) L 08/18/18 06:20 Albumin/Globulin Ratio 1.3 (1.0-2.2) 08/18/18 06:20 Lipase 39 U/L (22-51) 08/15/18 12:35 TSH 2.68 uIU/mL (0.34-5.60) 08/15/18 20:40 Urine Color YELLOW 08/15/18 21:42 Urine Clarity CLEAR (CLEAR) 08/15/18 21:42 Urine pH 5.5 PH (5.0-7.5) 08/15/18 21:42 Ur Specific [place] 1.010 (1.002-1.030) 08/15/18 21:42 Urine Protein NEGATIVE mg/dL (NEGATIVE) 08/15/18 21:42 Urine Glucose (UA) NEGATIVE mg/dL (NEGATIVE) 08/15/18 21:42 Urine Ketones NEGATIVE mg/dL (NEGATIVE) 08/15/18 21:42 Urine Occult Blood NEGATIVE (NEGATIVE) 08/15/18 21:42 Urine Nitrite NEGATIVE (NEGATIVE) 08/15/18 21:42 Urine Bilirubin NEGATIVE (NEGATIVE) 08/15/18 21:42 Urine Urobilinogen 0.2 (NORMAL) E.U./dL (NORMAL) 08/15/18 21:42 Ur Leukocyte Esterase NEGATIVE (NEGATIVE) 08/15/18 21:42 Ur Microscopic Review NOT INDICATED 08/15/18 21:42 Urine Culture Comments NOT INDICATED 08/15/18 21:42 Ethyl Alcohol < 5.0 mg/dL 08/15/18 12:35 Blood Type B NEGATIVE 08/15/18 12:35 Blood Type Recheck B NEGATIVE 08/15/18 23:43 Antibody Screen NEGATIVE 08/15/18 12:35 Crossmatch IS Only See Detail 08/15/18 12:35 ABX Reporting Has patient been on IV antibiotics over the past 48 hours?: No
[2018-08-18] MEDS: [UNRECOGNIZED DRUG - OTHER] PO SCH (08:55)
[2018-08-18] MEDS: PANTOPRAZOLE 40 MG TABLET PO SCH ×2 (09:06→21:04)
[2018-08-18] MEDS: CALCIUM CITRATE 250 MG TABLET PO SCH (09:07)
[2018-08-18 10:15] LABS: HGB - HEMOGLOBIN 9.4 g/dL (12.0-16.0)
--- NOTE | 2018-08-18 13:19 | PROVIDER PROGRESS NOTE ---
Subjective - Prog Note Date Prog Note Date: 08/18/18 - Subjective Pt reports feeling: Improved Subjective: pt report she is feel fine but report she still has black stool in the morning. She denies SOB, palpitation, chest pain, dizziness, pre-syncope or syncope. Current Medications - Current Medications Current Medications: Active Medications Calcium Citrate () 250 mg PO DAILY [facility] Last Admin: 08/18/18 09:07 Dose: 250 mg Diphenhydramine HCl (Benadryl Inj) 25 mg IVP Q6H PRN PRN Reason: Allergy Symptoms Pantoprazole Sodium (Protonix) 40 mg PO BID [facility] Last Admin: 08/18/18 09:06 Dose: 40 mg Pork Thyroid [Nature (-Throid] 16.25 Mg) 1 each PO DAILY [facility] Last Admin: 08/18/18 08:55 Dose: 1 each Sodium Chloride (Normal Saline Flush 0.9%) 10 ml IVP PRN PRN PRN Reason: NEEDED PER PROVIDER ORDERS Last Admin: 08/17/18 21:03 Dose: 10 ml Sodium Chloride (Normal Saline Flush 0.9%) 10 ml IVP 0100,0900,1700 [facility] Last Admin: 08/18/18 09:07 Dose: 10 ml Thyroid,Pork [Nature-Throid] 16.25 mg PO DAILY 03/26/15 Estradiol 0.25 mg TOP DAILY 08/16/18 Naltrexone HCl 3 mg PO QPM 08/16/18 Testosterone 4 mg TOP DAILY 08/16/18 Objective - Vital Signs/Intake & Output Reviewed Vital Signs: Yes Vital Signs: Vital Signs x48h Temp Pulse Resp BP Pulse Ox 08/18/18 07:47 36.9 C 71 18 137/56 H 97 Intake & Output: Intake & Output 08/15/18 08/16/18 08/17/18 08/18/18 23:59 23:59 23:59 23:59 Intake Total 1650 4429 2631.167 Output Total 675 2255 1000 Balance 975 2174 1631.167 - Objective General Appearance: positive: No acute distress, Alert. negative: Lethargic Eyes Bilateral: positive: Normal inspection, PERRL, No lid inflammation, Conjunctivae nml ENT: positive: ENT inspection nml, Pharynx nml, No signs of dehydration. negative: Purulent nasal drainage, Pharyngeal erythema, Oral lesions Neck: positive: Nml inspection, Thyroid nml, No JVD, Trachea midline. negative: Thyromegaly, Lymphadenopathy (R), Lymphadenopathy (L), Stiff neck, Swelling/bruising, Tracheal deviation Respiratory: positive: Chest non-tender, No respiratory distress, Breath sounds nml. negative: Wheezes, Rales, Rhonchi Cardiovascular: positive: Regular rate & rhythm, No murmur, No gallop. negative: Irregularly irregular, Extrasystoles, Tachycardia, Bradycardia, JVD present, Systolic murmur, Diastolic murmur Peripheral Pulses: 2+ Radial (R), 2+ Radial (L), 2+ Dorsalis pedis (R), 2+ Dorsalis pedis (L) Abdomen: positive: Non-tender, No organomegaly, Nml bowel sounds, No distention. negative: Tenderness, Guarding, Rebound Back: positive: Nml inspection. negative: CVA tenderness (R), CVA tenderness (L) Skin: positive: Color nml, No rash, Warm, Dry. negative: Cyanosis, Diaphoresis, Pallor Extremities: positive: Non-tender, Full ROM, Nml appearance. negative: Calf tenderness, Joint swelling, Ele's sign/cords Neurologic/Psychiatric: positive: Oriented x3, Motor nml, Sensation nml, Mood/a ffect nml. negative: Weakness, Sensory loss, Facial droop, Slurred/abnml speech, Depressed mood/affect - Lab Results Fish Bones: 08/18/18 10:07 08/18/18 06:20 Other Labs: Lab Results x24hrs 08/18/18 08/18/18 08/18/18 Range/Units 10:07 06:20 06:20 WBC 7.4 (4.8-10.8) x10^3/uL RBC 2.77 L (4.20-5.40) 10^6/uL Hgb 9.4 L 8.6 L (12.0-16.0) g/dL Hct 27.2 L 24.9 L (37.0-47.0) % MCV 90.1 (81.0-99.0) fL MCH 31.2 H (27.0-31.0) pg MCHC 34.6 (32.0-36.0) g/dL RDW 15.0 (12.0-15.0) % Plt Count 182 (130-450) 10^3/uL MPV 7.2 L (7.9-10.8) fL Neut # (Auto) 4.7 (1.5-6.6) 10^3/uL Lymph # (Auto) 1.7 (1.5-3.5) 10^3/uL [place] # (Auto) 0.6 (0.0-1.0) 10^3/uL Eos # (Auto) 0.3 (0.0-0.7) 10^3/uL Baso # (Auto) 0.1 (0.0-0.1) 10^3/uL Absolute Nucleated RBC 0.01 x10^3/uL Nucleated RBC % 0.1 /100WBC Sodium 138 (135-145) mmol/L Potassium 3.7 (3.5-5.0) mmol/L Chloride 109 (101-111) mmol/L Carbon Dioxide 24 (21-32) mmol/L Anion Gap 5.0 L (6-13) BUN 15 (6-20) mg/dL Creatinine 0.6 (0.4-1.0) mg/dL Estimated GFR (MDRD) 97 (>89) Glucose 100 (70-100) mg/dL Calcium 7.3 L (8.5-10.3) mg/dL Total Bilirubin 0.5 (0.2-1.0) mg/dL AST 20 (10-42) IU/L ALT 21 (10-60) IU/L Alkaline Phosphatase 32 L (42-121) IU/L Total Protein 4.2 L (6.7-8.2) g/dL Albumin 2.4 L (3.2-5.5) g/dL Globulin 1.8 L (2.1-4.2) g/dL Albumin/Globulin Ratio 1.3 (1.0-2.2) 08/18/18 08/17/18 Range/Units 01:55 16:11 WBC 9.8 (4.8-10.8) x10^3/uL RBC 2.86 L (4.20-5.40) 10^6/uL Hgb 8.8 L 9.2 L (12.0-16.0) g/dL Hct 25.2 L 25.6 L (37.0-47.0) % MCV 89.6 (81.0-99.0) fL MCH 32.1 H (27.0-31.0) pg MCHC 35.8 (32.0-36.0) g/dL RDW 14.9 (12.0-15.0) % Plt Count 201 (130-450) 10^3/uL MPV 7.2 L (7.9-10.8) fL Neut # (Auto) 6.3 (1.5-6.6) 10^3/uL Lymph # (Auto) 2.5 (1.5-3.5) 10^3/uL [place] # (Auto) 0.8 (0.0-1.0) 10^3/uL Eos # (Auto) 0.1 (0.0-0.7) 10^3/uL Baso # (Auto) 0.1 (0.0-0.1) 10^3/uL Absolute Nucleated RBC 0.02 x10^3/uL Nucleated RBC % 0.2 /100WBC Sodium (135-145) mmol/L Potassium (3.5-5.0) mmol/L Chloride (101-111) mmol/L Carbon Dioxide (21-32) mmol/L Anion Gap (6-13) BUN (6-20) mg/dL Creatinine (0.4-1.0) mg/dL Estimated GFR (MDRD) (>89) Glucose (70-100) mg/dL Calcium (8.5-10.3) mg/dL Total Bilirubin (0.2-1.0) mg/dL AST (10-42) IU/L ALT (10-60) IU/L Alkaline Phosphatase (42-121) IU/L Total Protein (6.7-8.2) g/dL Albumin (3.2-5.5) g/dL Globulin (2.1-4.2) g/dL Albumin/Globulin Ratio (1.0-2.2) ABX Reporting Has patient been on IV antibiotics over the past 48 hours?: No Assessment/Plan - Problem List (1) GI bleed Impression: 08/18, HGB is relative stable, but pt still report she had black stool. However, BUN is significantly down to 15 from 35. Discuss with , overnight H&H monitor pt, agree PO high dosage of PPI, update diet 08/17 pt's HGB continue to drop. two unit blood was order to pt H&H to monitor discuss with Dr. Ga, pt may need re-EGD if continue to have black stool and HGB drop, start NPO after midnight The patient admits to vomiting "about a mouth full" of blood this morning. She also had frequent stools beginning at 6:15AM, and another about 30 minutes later. She states that her stool appeared black, but thought it was due to eating too many blueberries yesterday. She states that starting last Tuesday 3 days ago, she noticed increased heartburn symptoms. The patient had a syncopal episode soon after arriving to the nursing floor in which she lost consciou sness, a code blue was called and she filled the bedside commode with black/maroon liquid stool. The patient underwent an EGD with Dr. Lacho Ga and preliminary findings suggested there was a likely source of bleeding as some tissues were noted to be discolored. Biopsies were taken, and the patient will remain on a protonix gtt for at least 48 hours. Plan: Give 2 units of PRBCs tonight, continue protonix gtt, clear liquid diet, and possibly home tomorrow if the patient remains stable. (2) Abdominal pain Impression: resolved 08/17 pt denies abdominal pain at this point. continue to monitor, advance the diet as tolerated. The patient complains of LUQ and RUQ abdominal pain that began on the morning prior to admission. She had 2 loose, black stools and went to her PCP who is a department supervisor and concluded that she has "food poisoning". She went home and vomited a mouth full of bright red blood, so called 911. Once in the ED she continued to complain of abdominal pain as severe. Today she is post EGD, and remains on a protonix gtt. Upon exam, she denies any abdominal pain and her abdomen is soft with good bowel sounds throughout. Plan: Continue to monitor, and a clear liquid diet for now. (3) Anemia Impression: HGB is 8.6 after transfusion of 2 unit of blood, relative stable. 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 She may have had ulcers creeping up on her, and denies recent bleeding or a cancer history. She continues to appear pale, has intermettent shortness of breath that becomes worse with activity, and has continued weakness with fatigue. She is agreeable to a blood transfusion, so she will get 2 units of PRBCs for a baseline hemoglobin of 11.9, now 7.3. Her iron studies show a normal iron, a low TIBC of 246, and a low transferrin of 176. Plan: Transfuse 2 units, serial H/Hs, and monitor for anymore signs of bleeding. (4) H/O Helicobacter infection Impression: TIN [employer] test negative, biopsy is pending, will follow up The patient states that she had a history of this in which she was treated by "lowering her blood sugar and being injected with something". Plan: Wait for testing and plan to treat if positive. Qualifiers: GI bleed type/associated pathology: gastric ulcer Qualified Code(s): K25.4 - Chronic or unspecified gastric ulcer with hemorrhage
[2018-08-18 18:53] LABS: HGB - HEMOGLOBIN 9.3 g/dL (12.0-16.0)
[2018-08-19 06:03] LABS: BASOPHILS % (AUTO) 0.7 %; EOSINOPHILS # (AUTO) 0.3 10^3/uL (0.0-0.7); EOSINOPHILS % (AUTO) 5.4 %; LYMPHOCYTES # (AUTO) 1.5 10^3/uL (1.5-3.5); LYMPHOCYTES % (AUTO) 23.3 %; MEAN CORPUSCULAR HEMOGLOBIN 31.7 pg (27.0-31.0); MEAN CORPUSCULAR HGB CONC 34.5 g/dL (32.0-36.0); MEAN CORPUSCULAR VOLUME 91.8 fL (81.0-99.0); MEAN PLATELET VOLUME 7.7 fL (7.9-10.8); MONOCYTES # (AUTO) 0.6 10^3/uL (0.0-1.0); MONOCYTES % (AUTO) 8.9 %; NEUTROPHILS # (AUTO) 3.9 10^3/uL (1.5-6.6); NEUTROPHILS % (AUTO) 61.7 %; PLT - PLATELET COUNT 208 10^3/uL (130-450); RED BLOOD COUNT 2.85 10^6/uL (4.20-5.40); RED CELL DISTRIBUTION WIDTH 14.8 % (12.0-15.0); WHITE BLOOD COUNT 6.4 x10^3/uL (4.8-10.8)
[2018-08-19 06:18] LABS: ALBUMIN 2.8 g/dL (3.2-5.5); ALBUMIN/GLOBULIN RATIO 1.6 (1.0-2.2); BILIRUBIN,TOTAL 0.4 mg/dL (0.2-1.0); CALCIUM 7.7 mg/dL (8.5-10.3); CREATININE 0.5 mg/dL (0.4-1.0); TOTAL PROTEIN 4.5 g/dL (6.7-8.2)
[2018-08-19 07:42] VITALS: BP 132/48
[2018-08-19] MEDS: CALCIUM CITRATE 250 MG TABLET PO SCH (08:45)
[2018-08-19] MEDS: SODIUM CHLORIDE FLUSH 0.9% 10 ML SYRINGE IVP SCH (08:45)
[2018-08-19] MEDS: PANTOPRAZOLE 40 MG TABLET PO SCH (08:45)
[2018-08-19] MEDS: [UNRECOGNIZED DRUG - OTHER] PO SCH (08:46)
--- NOTE | 2018-08-19 09:16 | PROVIDER PROGRESS NOTE ---
Assessment/Plan - Problem List (1) GI bleed Qualifiers: GI bleed type/associated pathology: gastric ulcer Qualified Code(s): K25.4 - Chronic or unspecified gastric ulcer with hemorrhage Assessment/Plan: Resolving/resolved; pt has been stable on oral high dose PPI therapy for over 24 hours with no signs of recurrent bleeding. Rec: home on high dose BID PPI therapy, avoid NSAIDs & alcohol; avoid any supplements containing any acid or NSAID, f/u my office in 2 weeks please. Will need repeat EGD to document healing of the ulcer in 6-8 weeks. - Current Meds Current Meds: Current Medications Generic Name Dose Route Start Last Admin Trade Name Freq PRN Reason Stop Dose Admin Calcium Citrate 250 mg 08/18/18 09:00 08/19/18 08:45 PO 250 mg DAILY ANA Administration Pantoprazole Sodium 40 mg 08/18/18 09:00 08/19/18 08:45 Protonix PO 40 mg BID ANA Administration Pork Thyroid [Nature 1 each 08/17/18 09:00 08/19/18 08:46 -Throid] 16.25 Mg PO 1 each DAILY ANA Administration Sodium Chloride 10 ml 08/15/18 14:12 08/17/18 21:03 Normal Saline Flush 0.9% IVP 10 ml PRN PRN Administration NEEDED PER PROVIDER ORDERS Sodium Chloride 10 ml 08/15/18 17:00 08/19/18 08:45 Normal Saline Flush 0.9% IVP 10 ml 0100,0900,1700 ANA Administration - Lab Result Lab results reviewed: Yes Fish Bone Diagrams: 08/19/18 05:28 08/19/18 05:28 - Additional Planning Condition/Complexity: Improved My Orders: My Active Orders 08/18/18 08:51 Activity Orders [RC] QSHIFT 08/18/18 09:00 Pantoprazole [Protonix] 40 mg PO BID 08/18/18 Lunch Regular Diet [DIET] Plan Discussed with:: Patient, Other ([place], hospitalist) Time Spent: 15-30 minutes Subjective - Subjective Patient Reports: Feeling Better, Resting Comfortably, No Complaints (one formed black stool in past 24 hours; tolerating a regular diet, ambulating, voiding well. Pt reports that she takes hydrocloric acid as a regular supplement because she was told many years ago that her stomach doesn't make enough acid.) Objective Vital Signs: Vital Signs - 24 hr 08/18/18 08/18/18 08/19/18 15:19 23:52 07:38 Temperature 36.4 C L 36.6 C 36.5 C Heart Rate [ 65 62 65 Brachial] Respiratory 18 18 17 Rate Blood Pressure 129/43 L 132/48 H [Left Brachial artery] Blood Pressure 134/55 H [Right Brachial artery] O2 Saturation 100 100 98 Oxygen O2 Source Nasal cannula I&O (Last 24 Hrs): Intake and Output Totals x24h 08/17/18 08/18/18 08/19/18 23:59 23:59 23:59 Intake Total 2631.167 440 400 Output Total 1000 Balance 1631.167 440 400 General: Alert, Oriented x3, Cooperative, No acute distress Abdomen: Soft, No tenderness, No hepatospenomegaly, No masses Rectal: Stool - Heme POS Extremities: No edema, No tenderness/swelling - Results Results: Laboratory Results WBC 6.4 x10^3/uL (4.8-10.8) 08/19/18 05:28 RBC 2.85 10^6/uL (4.20-5.40) L 08/19/18 05:28 Hgb 9.0 g/dL (12.0-16.0) L 08/19/18 05:28 Hct 26.1 % (37.0-47.0) L 08/19/18 05:28 MCV 91.8 fL (81.0-99.0) 08/19/18 05:28 MCH 31.7 pg (27.0-31.0) H 08/19/18 05:28 MCHC 34.5 g/dL (32.0-36.0) 08/19/18 05:28 RDW 14.8 % (12.0-15.0) 08/19/18 05:28 Plt Count 208 10^3/uL (130-450) 08/19/18 05:28 MPV 7.7 fL (7.9-10.8) L 08/19/18 05:28 Neut # (Auto) 3.9 10^3/uL (1.5-6.6) 08/19/18 05:28 Lymph # (Auto) 1.5 10^3/uL (1.5-3.5) 08/19/18 05:28 [place] # (Auto) 0.6 10^3/uL (0.0-1.0) 08/19/18 05:28 Eos # (Auto) 0.3 10^3/uL (0.0-0.7) 08/19/18 05:28 Baso # (Auto) 0.0 10^3/uL (0.0-0.1) 08/19/18 05:28 Absolute Nucleated RBC 0.01 x10^3/uL 08/19/18 05:28 Nucleated RBC % 0.1 /100WBC 08/19/18 05:28 PT 12.7 secs (9.9-12.6) H 08/15/18 17:17 INR 1.1 (0.8-1.2) 08/15/18 17:17 APTT 23.5 secs (24.9-33.3) L 08/15/18 17:17 Sodium 137 mmol/L (135-145) 08/19/18 05:28 Potassium 3.7 mmol/L (3.5-5.0) 08/19/18 05:28 Chloride 107 mmol/L (101-111) 08/19/18 05:28 Carbon Dioxide 25 mmol/L (21-32) 08/19/18 05:28 Anion Gap 5.0 (6-13) L 08/19/18 05:28 BUN 10 mg/dL (6-20) 08/19/18 05:28 Creatinine 0.5 mg/dL (0.4-1.0) 08/19/18 05:28 Estimated GFR (MDRD) 120 (>89) 08/19/18 05:28 Glucose 99 mg/dL (70-100) 08/19/18 05:28 POC Whole Bld Glucose 150 mg/dL (70 - 100) H 08/15/18 17:19 Lactic Acid 0.9 mmol/L (0.5-2.2) 08/15/18 23:43 Calcium 7.7 mg/dL (8.5-10.3) L 08/19/18 05:28 Magnesium 2.0 mg/dL (1.7-2.8) 08/19/18 05:28 Iron 74 ug/dL (28-170) 08/15/18 20:40 TIBC 246 ug/dL (250-450) L 08/15/18 20:40 % Saturation 30 % (20-50) 08/15/18 20:40 Transferrin 176 mg/dL (192-382) L 08/15/18 20:40 Total Bilirubin 0.4 mg/dL (0.2-1.0) 08/19/18 05:28 GGT 11 IU/L (8-38) 08/15/18 20:40 AST 20 IU/L (10-42) 08/19/18 05:28 ALT 22 IU/L (10-60) 08/19/18 05:28 Alkaline Phosphatase 37 IU/L (42-121) L 08/19/18 05:28 Troponin I < 0.04 ng/mL (<0.49) 08/15/18 17:17 Total Protein 4.5 g/dL (6.7-8.2) L 08/19/18 05:28 Albumin 2.8 g/dL (3.2-5.5) L 08/19/18 05:28 Globulin 1.7 g/dL (2.1-4.2) L 08/19/18 05:28 Albumin/Globulin Ratio 1.6 (1.0-2.2) 08/19/18 05:28 Lipase 39 U/L (22-51) 08/15/18 12:35 TSH 2.68 uIU/mL (0.34-5.60) 08/15/18 20:40 Urine Color YELLOW 08/15/18 21:42 Urine Clarity CLEAR (CLEAR) 08/15/18 21:42 Urine pH 5.5 PH (5.0-7.5) 08/15/18 21:42 Ur Specific [place] 1.010 (1.002-1.030) 08/15/18 21:42 Urine Protein NEGATIVE mg/dL (NEGATIVE) 08/15/18 21:42 Urine Glucose (UA) NEGATIVE mg/dL (NEGATIVE) 08/15/18 21:42 Urine Ketones NEGATIVE mg/dL (NEGATIVE) 08/15/18 21:42 Urine Occult Blood NEGATIVE (NEGATIVE) 08/15/18 21:42 Urine Nitrite NEGATIVE (NEGATIVE) 08/15/18 21:42 Urine Bilirubin NEGATIVE (NEGATIVE) 08/15/18 21:42 Urine Urobilinogen 0.2 (NORMAL) E.U./dL (NORMAL) 08/15/18 21:42 Ur Leukocyte Esterase NEGATIVE (NEGATIVE) 08/15/18 21:42 Ur Microscopic Review NOT INDICATED 08/15/18 21:42 Urine Culture Comments NOT INDICATED 08/15/18 21:42 Ethyl Alcohol < 5.0 mg/dL 08/15/18 12:35 Blood Type B NEGATIVE 08/15/18 12:35 Blood Type Recheck B NEGATIVE 08/15/18 23:43 Antibody Screen NEGATIVE 08/15/18 12:35 Crossmatch IS Only See Detail 08/15/18 12:35 ABX Reporting Has patient been on IV antibiotics over the past 48 hours?: No
--- NOTE | 2018-08-19 11:06 | Discharge Plan ---
Discharge Plan Disposition: 01 Home, Self Care Condition: Poor Prescriptions: Pantoprazole [Protonix] 40 mg PO BID #30 tablet Diet: Regular Activity Restrictions: Activity as Tolerated Shower Restrictions: No (fall precaution) Instruction Topics: Bleeding Gastrointestinal Additional Instructions or Follow Up instructions: You may follow up your PCP in one week, follow up Dr. Lacho Ga at [facility] in two weeks. You may need repeat EGD to document healing of the ulcer in 6-8 weeks. Advise avoid NSAIDs, alcohol, supplement containing any acid or NSAIDs. Should your symptoms return or worsen, you may present ER or call 911 for help. No Smoking: If you smoke, Please STOP! Call for help. Follow-up with: Dillan Gama ND [Primary Care Provider] -
--- NOTE | 2018-08-19 11:13 | DISCHARGE SUMMARY ---
Discharge Summary Discharge Date: 08/19/18 Discharging Provider: LEBRON Primary Care Provider: Dillan Bhakta Condition at Discharge: Poor Discharge Disposition: 01 Home, Self Care Discharge Facility Name: home - DIAGNOSES Admission Diagnoses: (1) GI bleed (2) Abdominal pain (3) Anemia (4) H/O Helicobacter infection Discharge Diagnoses with Status of Each Condition: (1) GI bleed pt's HGB is stable, BUN is down to [address] Lacho Ga D/c pt. continue with PO PPI, follow up surgeon on two weeks (2) Abdominal pain resolved (3) Anemia HGB is 9.3 today and stable. pt is asymptomatic for anemia. (4) H/O Helicobacter infection JENNIFER test is negative, biopsy is pending, follow up surgeon's biopsy result when pt see surgeon. - HPI History of Present Illness: refer from Ms. Arora's HPI for pt as the following: Donte Aleman is a 77-year old female with a past medical history of GERD, gastritis, H. pylori, 2 c-sections, and osteoarthritis. She woke up this morning with an urgency to move her bowels, and 30 minutes later. The second time she noticed that this was accompanied by diaphoresis, nausea, dizziness and the stool appeared loose and black. She beleived that she ate too many blueberries the day before, so thought this may have made her stool a dark color. She saw her social services assistant in the clinic who concluded that these symptoms are from "food poisoning". When she returned home, she vomited up bright red blood that she describes as about a mouth full and called 911. Once arriving in the ED the patient was found to be mildly anemic with a hemoglobin of 11.7 and a hematocrit of 34.5. She was also noted to have an elevated WBC count of 16.1, an elevated BUN of 49, an elevated blood glucose of 172, a normal troponin, a negative blood alcohol level and was otherwise hemodynamically stable. Due to her reports of vomiting blood, anemia, and WBC count, she will be admitted to inpatient with a GI consult. Once arriving on the nursing floor, she got up to the bed side commode, lost consciousness, appeared pale diaphoretic, was bradycardic with heart rates in the 60's, normal blood pressure. She was manually lifted to bed by nursing, placed in trendelenberg, given a 500ml normal saline bolus and monitored. Her family was in the hallway and updated. I called Dr. Lacho Ga, who will plan for an immediate EGD. The patient's commode was nearly all the way full of black/maroon stool. STAT labs, a chest x-ray and an EKG were obtained and final results pending. - CONSULTS | PROCEDURES Consultations: Dr. Lacho Ga Procedures: EGD - ALLERGIES Allergies/Adverse Reactions: Allergies Allergy/AdvReac Type Severity Reaction Status Date / Time No Known Drug Allergies Allergy Verified 08/15/18 12:25 - MEDICATIONS Home Medications: Ambulatory Orders Medication Instructions Recorded Confirmed Thyroid,Pork [Nature-Throid] 16.25 mg PO DAILY 03/26/15 08/16/18 Estradiol 0.25 mg TOP DAILY 08/16/18 08/16/18 Naltrexone HCl 3 mg PO QPM 08/16/18 08/16/18 Testosterone 4 mg TOP DAILY 08/16/18 08/16/18 Pantoprazole [Protonix] 40 mg PO BID #30 tablet 08/19/18 - PHYSICAL EXAM AT DISCHARGE General Appearance: positive: No acute distress, Alert. negative: Lethargic Eyes Bilateral: positive: Normal inspection, PERRL, No lid inflammation, Conjunctivae nml ENT: positive: ENT inspection nml, Pharynx nml, No signs of dehydration. negative: Purulent nasal drainage, Pharyngeal erythema, Oral lesions Neck: positive: Nml inspection, Thyroid nml, No JVD, Trachea midline. negative: Thyromegaly, Lymphadenopathy (R), Lymphadenopathy (L), Stiff neck, Swelling/bruising, Tracheal deviation Respiratory: positive: Chest non-tender, No respiratory distress, Breath sounds nml. negative: Wheezes, Rales, Rhonchi Cardiovascular: positive: Regular rate & rhythm, No murmur, No gallop. negative: Irregularly irregular, Extrasystoles, Tachycardia, Bradycardia, JVD present, Systolic murmur, Diastolic murmur Peripheral Pulses: positive: 2+ Abdomen: positive: Non-tender, No organomegaly, Nml bowel sounds, No distention. negative: Tenderness, Guarding, Rebound Back: positive: Nml inspection. negative: CVA tenderness (R), CVA tenderness (L) Skin: positive: Color nml, No rash, Warm, Dry. negative: Cyanosis, Diaphoresis, Pallor Extremities: positive: Non-tender, Full ROM, Nml appearance. negative: Calf tenderness, Joint swelling, Ele's sign/cords Neurologic/Psychiatric: positive: Oriented x3, Motor nml, Sensation nml, Mood/affect nml. negative: Weakness, Sensory loss, Facial droop, Slurred/abnml speech, Depressed mood/affect - LABS Result Diagrams: 08/19/18 05:28 08/19/18 05:28 - FOLLOW UP Follow Up: You may follow up your PCP in one week, follow up Dr. Lacho Ga at [facility] in two weeks. You may need repeat EGD to document healing of the ulcer in 6-8 weeks. Advise avoid NSAIDs, alcohol, supplement containing any acid or NSAIDs. Should your symptoms return or worsen, you may present ER or call 911 for help. - TIME SPENT Time Spent in Discharge (Minutes): 50
== END 2018-08-19 13:11 | disposition home or self-care (01) | DRG 378 ==
LOC: EDUNIT# → ED 12:17 → MS2 14:12
PROVIDERS: ADMIT Nurse Practitioner; ATTEND Nurse Practitioner Gerontology
PROC: 0DB78ZX Excision of Stomach, Pylorus, Via Natural or Artificial Opening Endoscopic, Diagnostic (ICD-10-PCS; 2018-08-15)
PROC: 0W3P8ZZ Control Bleeding in Gastrointestinal Tract, Via Natural or Artificial Opening Endoscopic (ICD-10-PCS; principal; 2018-08-15 18:14)
PROC: 30233N1 Transfusion of Nonautologous Red Blood Cells into Peripheral Vein, Percutaneous Approach (ICD-10-PCS; 2018-08-16)
DX: K92.1 Melena (principal); K92.0 Hematemesis; K25.4 Chronic or unspecified gastric ulcer with hemorrhage; D62 Acute posthemorrhagic anemia; K31.9 Disease of stomach and duodenum, unspecified; K21.9 Gastro-esophageal reflux disease without esophagitis; R55 Syncope and collapse; E03.9 Hypothyroidism, unspecified; Z87.19 Personal history of other diseases of the digestive system; Z86.19 Personal history of other infectious and parasitic diseases; Z79.899 Other long term (current) drug therapy
CPT/HCPCS: 36415; 71045; 80048; 80053; 80320; 81001; 81003; 82270; 82977; 83540; 83605; 83690; 83735; 84443; 84466; 84484; 85014; 85018; 85025; 85610; 85730; 86850; 86900; 86901; 86920; 87081; 87086; 88305; 93005; 93306; 96365; 99284

== ENCOUNTER 2018-09-06 15:47 | Outpatient (CLI) | payer MEDICARE, OTHER ==
[2018-09-06 17:49] LABS: BASOPHILS # (AUTO) 0.1 10^3/uL (0.0-0.1); EOSINOPHILS # (AUTO) 0.3 10^3/uL (0.0-0.7); EOSINOPHILS % (AUTO) 4.4 %; HGB - HEMOGLOBIN 11.7 g/dL (12.0-16.0); LYMPHOCYTES # (AUTO) 1.7 10^3/uL (1.5-3.5); LYMPHOCYTES % (AUTO) 28.4 %; MEAN CORPUSCULAR HEMOGLOBIN 30.1 pg (27.0-31.0); MEAN CORPUSCULAR HGB CONC 33.4 g/dL (32.0-36.0); MEAN CORPUSCULAR VOLUME 90.2 fL (81.0-99.0); MEAN PLATELET VOLUME 7.6 fL (7.9-10.8); MONOCYTES # (AUTO) 0.5 10^3/uL (0.0-1.0); MONOCYTES % (AUTO) 8.3 %; NEUTROPHILS # (AUTO) 3.5 10^3/uL (1.5-6.6); NEUTROPHILS % (AUTO) 57.9 %; PLT - PLATELET COUNT 424 10^3/uL (130-450); RED BLOOD COUNT 3.89 10^6/uL (4.20-5.40); RED CELL DISTRIBUTION WIDTH 14.6 % (12.0-15.0)
== END 2018-09-06 15:48 | disposition home or self-care (01) ==
LOC: LAB.F 15:47
PROVIDERS: ATTEND Internal Medicine Gastroenterology
DX: K25.4 Chronic or unspecified gastric ulcer with hemorrhage (principal)
CPT/HCPCS: 36415; 85025

== ENCOUNTER 2018-10-13 10:18 | Day surgery (SDC) | payer MEDICARE, OTHER ==
[2018-10-13] MEDS ORDERED: LACTATED RINGERS 1,000 ML IV ONE (11:01)
[2018-10-13] MEDS ORDERED: BENZOCAINE/TETRACAINE/BUTAMBEN 20 GM TOP ONE (11:49)
[2018-10-13 13:33] VITALS: BP 128/50
--- NOTE | 2018-10-13 15:00 | PROCEDURE REPORT ---
DATE OF SERVICE: 10/13/2018 Physician: Carlito Guo MD PREOPERATIVE DIAGNOSIS: Gastric ulcer. POSTOPERATIVE DIAGNOSIS: Normal esophagogastroduodenoscopy. PROCEDURE: Esophagogastroduodenoscopy. INDICATIONS FOR THE PROCEDURE: The patient had a heavily bleeding gastric ulcer in the past that was controlled by EGD. She is here now for followup EGD. PROCEDURE IN DETAIL: The risks and benefits of the procedure were explained to the patient. She agre ed and was taken to the operating room, given sedation. The timeout was performed. Everyone in the room agree with the procedure. We passed the scope through the oral cavity down to the second portion of duodenum and then slowly withdrew it. The duodenum and stomach were completely free of abnormali ties as well as the esophagus. The scope was then completely withdrawn and the procedure terminated. The patient tolerated the procedure well, was taken to recovery in stable condition. COMPLICATIONS: None. SPECIMEN: None. PLAN: To followup with PCP. TD: 10/13/2018 12:13
== END 2018-10-13 10:19 | disposition home or self-care (01) ==
LOC: SDS 10:18
PROVIDERS: ATTEND Surgery
PROC: 0DJ08ZZ Inspection of Upper Intestinal Tract, Via Natural or Artificial Opening Endoscopic (ICD-10-PCS; principal; 2018-10-13 11:30)
DX: Z09 Encounter for follow-up examination after completed treatment for conditions other than malignant neoplasm (principal); K25.4 Chronic or unspecified gastric ulcer with hemorrhage; I10 Essential (primary) hypertension
CPT/HCPCS: 43235; A9270; J7120

== ENCOUNTER 2022-07-26 17:47 | Observation (INO) | payer MEDICARE, OTHER ==
--- NOTE | 2022-07-26 18:16 | ED Physician Documentation ---
History of Present Illness - Stated complaint Stated Complaint: HIGH BP - Chief complaint Chief Complaint: Cardiac - History obtained from History obtained from: Patient, Family - History of Present Illness Timing: Today Pain level max: 0 Pain level now: 0 - Additonal information Additional information: Patient is a 81-year-old female who presents to the emergency department with 20 minutes of aphasia earlier today. She states that she had blurred vision at that time and felt off balance as well. Difficulty with word finding and speaking to others. This occurred about 2 hours prior to arrival. She states that her blood pressure was high at that time. Has a history of hypertension, blood pressure was 209/110 at her colonoscopy last week, she was given a dose of hydralazine. She is unsure what her normal blood pressure is that she does not check her blood pressure regularly. No chest pain. No shortness of breath. No nausea or vomiting. No abdominal pain. No history of stroke or TIA. She is scheduled to have cataract surgery next week. Review of Systems Ten Systems: 10 systems reviewed and negative Constitutional: denies: Fever, Chills Throat: denies: Sore throat Respiratory: denies: Cough GI: denies: Nausea, Vomiting, Diarrhea : denies: Dysuria Skin: denies: Rash Musculoskeletal: denies: Neck pain, Back pain Neurologic: reports: Generalized weakness, Difficulty speaking (Lasted about 20 minutes, now resolved). 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, Nocturia, Frequency HEENT: None Psych: None Musculoskeletal: Chronic back pain Derm: None - Past Surgical History Past Surgical History: Yes /CAR STEREO INSTALLER: section - Present Medications Home Medications: Ambulatory Orders Medication Instructions Recorded Confirmed Thyroid,Pork [Nature-Throid] 16.25 mg PO DAILY 03/26/15 10/12/18 Naltrexone HCl 3 mg PO QPM 08/16/18 10/12/18 Testosterone 4 mg TOP DAILY 08/16/18 10/12/18 estradioL [Estradiol] 0.25 mg TOP DAILY 08/16/18 10/12/18 Pantoprazole [Protonix] 40 mg PO BID #30 tablet 08/19/18 10/12/18 - Allergies Allergies/Adverse Reactions: Allergies Allergy/AdvReac Type Severity Reaction Status Date / Time No Known Drug Allergies Allergy Verified 07/26/22 17:51 - Social History Does the pt smoke?: No Smoking Status: Never smoker Does the pt drink ETOH?: Yes Does the pt have substance abuse?: No - Immunizations Immunizations are current?: No Immunizations: No immun - POLST Patient has POLST: No POLST Status: Full Code PD ED PE NORMAL - Vitals Vital signs reviewed: Yes - General General: Alert and oriented X 3, No acute distress, Well developed/nourished - HEENT HEENT: PERRL, Moist mucous membranes, Pharynx benign - Neck Neck: Supple, no meningeal sign, No JVD, No bruit - Cardiac Cardiac: RRR, No murmur, Strong equal pulses - Respiratory Respiratory: No respiratory distress, Clear bilaterally - Abdomen Abdomen: Soft, Non tender, Non distended - Derm Derm: Warm and dry, No rash - Extremities Extremities: No edema, No calf tenderness / cord - Neuro Neuro: Alert and oriented X 3, machine feller 2-12 intact, No motor deficit, No sensory deficit, Normal speech Eye Opening: Spontaneous Motor: Obeys Commands Verbal: Oriented GCS Score: 15 - Psych Psych: Normal mood, Normal affect Results - Vitals Vitals: Vital Signs - 24 hr 07/26/22 07/26/22 07/26/22 17:51 18:22 18:25 Temperature 36.5 C Heart Rate 68 61 Respiratory 16 11 L Rate Blood Pressure 255/68 H 224/89 H Blood Pressure 224/89 H [Left] Blood Pressure 239/86 H [Right] O2 Saturation 97 98 07/26/22 07/26/22 07/26/22 19:00 19:30 20:00 Temperature Heart Rate 56 L 58 L 64 Respiratory 15 16 16 Rate Blood Pressure 208/79 H 212/79 H 216/63 H Blood Pressure [Left] Blood Pressure [Right] O2 Saturation 96 96 95 07/26/22 07/26/22 07/26/22 20:30 20:49 20:51 Temperature Heart Rate 61 61 63 Respiratory 19 17 16 Rate Blood Pressure 226/63 H 220/102 H 218/73 H Blood Pressure [Left] Blood Pressure [Right] O2 Saturation 95 96 94 07/26/22 07/26/22 20:57 21:00 Temperature Heart Rate 66 63 Respiratory 18 14 Rate Blood Pressure 199/68 H 200/70 H Blood Pressure [Left] Blood Pressure [Right] O2 Saturation 94 93 Oxygen O2 Source Room air - EKG (time done) 1810 Rate: Rate (enter#) (62) Rhythm: NSR [place]: Normal Intervals: Normal [place] QRS: LVH Ischemia: Normal ST segments - Labs Labs: Laboratory Tests 07/26/22 07/26/22 07/26/22 16:01 18:20 18:20 WBC 7.4 RBC 4.81 Hgb 14.7 Hct 43.4 MCV 90.2 MCH 30.6 MCHC 33.9 RDW 13.2 Plt Count 358 MPV 9.5 Neut # (Auto) 4.7 Lymph # (Auto) 1.8 [place] # (Auto) 0.6 Eos # (Auto) 0.2 Baso # (Auto) 0.1 Absolute Nucleated RBC 0.00 Nucleated RBC % 0.0 PT 11.4 INR 1.0 Sodium Potassium Chloride Carbon Dioxide Anion Gap BUN Creatinine Estimated GFR (MDRD) Glucose Calcium Total Bilirubin AST ALT Alkaline Phosphatase Troponin I High Sens Total Protein Albumin Globulin Albumin/Globulin Ratio Lipase Urine Color YELLOW Urine Clarity CLEAR Urine pH 7.0 Ur Specific [place] 1.010 Urine Protein NEGATIVE Urine Glucose (UA) NEGATIVE Urine Ketones NEGATIVE Urine Occult Blood NEGATIVE Urine Nitrite NEGATIVE Urine Bilirubin NEGATIVE Urine Urobilinogen 0.2 (NORMAL) Ur Leukocyte Esterase NEGATIVE Ur Microscopic Review NOT INDICATED Urine Culture Comments NOT INDICATED SARS-CoV-2 (PCR) 07/26/22 07/26/22 07/26/22 18:20 18:20 20:50 WBC RBC Hgb Hct MCV MCH MCHC RDW Plt Count MPV Neut # (Auto) Lymph # (Auto) [place] # (Auto) Eos # (Auto) Baso # (Auto) Absolute Nucleated RBC Nucleated RBC % PT INR Sodium 137 Potassium 3.9 Chloride 102 Carbon Dioxide 25 Anion Gap 10.0 BUN 13 Creatinine 0.8 Estimated GFR (MDRD) 69 L Glucose 114 H Calcium 9.1 Total Bilirubin 0.4 AST 23 ALT 24 Alkaline Phosphatase 69 Troponin I High Sens 20.8 H* Total Protein 7.3 Albumin 4.3 Globulin 3.0 Albumin/Globulin Ratio 1.4 Lipase 45 Urine Color Urine Clarity Urine pH Ur Specific [place] Urine Protein Urine Glucose (UA) Urine Ketones Urine Occult Blood Urine Nitrite Urine Bilirubin Urine Urobilinogen Ur Leukocyte Esterase Ur Microscopic Review Urine Culture Comments SARS-CoV-2 (PCR) NOT DETECTED - Rads (name of study) CT angio head Radiology: Final report received, EMP read contemporaneously, See rad report CT angio neck Radiology: Final report received, EMP read contemporaneously, See rad report PD MEDICAL DECISION MAKING - ED course Complexity details: reviewed results, re-evaluated patient, considered differential, d/w patient, d/w family, d/w investigations consultant ED course: 81-year-old female presents to the emergency department with what appears to be a TIA today. Had about 20 minutes of expressive aphasia. She also has significant hypertension. She has been up to the 180s 190s and even 200 systolic in the past. She had a colonoscopy last week where her blood pressure was 200/100 and treated with hydralazine. This appears to be chronic significant hypertension, we gave her 10 mg of hydralazine in the emergency department. We will place the patient in observation for further work-up of the TIA and further evaluation of her blood pressure. Discussed the case with Dr. Vila, hospitalist accepts This document was made in part using voice recognition software. While efforts are made to proofread this document, sound alike and grammatical errors may occur. Departure - Departure Disposition: ED Place in Observation Clinical Impression: TIA (transient ischemic attack), Expressive aphasia Hypertension Qualifiers: Hypertension type: unspecified Qualified Code(s): I10 - Essential (primary) hypertension Condition: Good Discharge Date/Time: 07/26/22 21:42 NIHSS - Time Time: 18:08 - Level of Consciousness Level of consciousness: (0) Alert, Keenly responsive LOC Questions: (0) Answers both Q's correct LOC Commands: (0) Performs both correctly - Gaze Best Gaze: (0) Normal - Visual Visual: (0) No loss - Facial Palsy Facial Palsy: (0) Normal, symmetrical movement - Motor Arms (both separate) Motor Arm (right): (0) No drift Motor Arm (left): (0) No drift - Motor Legs (both separate) Motor Leg (right): (0) No drift Motor Leg (left): (0) No drift - Limb Ataxia Limb Ataxia: (0) Absent - Sensory Sensory: (0) Normal - Best Language Best Language: (0) No aphasia - Dysarthria Dysarthria: (0) Normal - Extinction and Inattention (formally neg Extinction and inattention: (0) No abnormality - Total Score/Results Total Score/Result: 0
[2022-07-26 18:26] LABS: BILIRUBIN,URINE NEGATIVE (NEGATIVE); GLUCOSE, URINE (UA) NEGATIVE (NEGATIVE); KETONES,URINE (UA) NEGATIVE (NEGATIVE); LEUKOCYTE ESTERASE, URINE NEGATIVE (NEGATIVE); NITRITE,URINE NEGATIVE (NEGATIVE); OCCULT BLOOD,URINE NEGATIVE (NEGATIVE); PROTEIN,URINE NEGATIVE (NEGATIVE); UROBILINOGEN,URINE 0.2 (NORMAL) E.U./dL (NORMAL)
[2022-07-26 18:26] LABS: BASOPHILS # (AUTO) 0.1 10^3/uL (0.0-0.1); BASOPHILS % (AUTO) 0.7 %; EOSINOPHILS # (AUTO) 0.2 10^3/uL (0.0-0.7); EOSINOPHILS % (AUTO) 3.1 %; HCT - HEMATOCRIT 43.4 % (37.0-47.0); HGB - HEMOGLOBIN 14.7 g/dL (12.0-16.0); LYMPHOCYTES # (AUTO) 1.8 10^3/uL (1.5-3.5); MEAN CORPUSCULAR HEMOGLOBIN 30.6 pg (27.0-31.0); MEAN CORPUSCULAR HGB CONC 33.9 g/dL (32.0-36.0); MEAN CORPUSCULAR VOLUME 90.2 fL (81.0-99.0); MEAN PLATELET VOLUME 9.5 fL (7.9-10.8); MONOCYTES # (AUTO) 0.6 10^3/uL (0.0-1.0); MONOCYTES % (AUTO) 8.2 %; NEUTROPHILS # (AUTO) 4.7 10^3/uL (1.5-6.6); NEUTROPHILS % (AUTO) 63.7 %; PLT - PLATELET COUNT 358 10^3/uL (130-450); RED BLOOD COUNT 4.81 10^6/uL (4.20-5.40); RED CELL DISTRIBUTION WIDTH 13.2 % (12.0-15.0); WHITE BLOOD COUNT 7.4 x10^3/uL (4.8-10.8)
[2022-07-26 18:29] LABS: CLARITY,URINE CLEAR (CLEAR)
[2022-07-26 18:35] LABS: PT - PROTHROMBIN TIME 11.4 secs (9.9-12.6)
[2022-07-26 18:42] LABS: ALBUMIN 4.3 g/dL (3.2-5.5); ALBUMIN/GLOBULIN RATIO 1.4 (1.0-2.2); BILIRUBIN,TOTAL 0.4 mg/dL (0.2-1.0); CALCIUM 9.1 mg/dL (8.5-10.3); CREATININE 0.8 mg/dL (0.4-1.0); POTASSIUM 3.9 mmol/L (3.5-5.0); TOTAL PROTEIN 7.3 g/dL (6.7-8.2)
--- NOTE | 2022-07-26 20:37 | CT Report ---
PROCEDURE: ANGIO HEAD W/WO INDICATIONS: aphasia x 20 mins, now resolved CONTRAST: IV CONTRAST: Optiray 320 ml: 80 PO CONTRAST: *NO PO CONTRAST TECHNIQUE: Precontrast 4.5 mm thick angled axial sections acquired from the foramen magnum to the vertex. Afte r the administration of intravenous contrast, 1 mm thick sections acquired through the [place] of Will is. Postcontrast 4.5 mm thick sections then re-acquired from the foramen magnum to the vertex. 3-di mensional fzkermd-tfsizecue-uzmhvqcsif (MIP) and/or volume rendering reformats were acquired of the c entral intracranial vasculature. For radiation dose reduction, the following was used: automated ex posure control, adjustment of mA and/or kV according to patient size. COMPARISON: Concurrent CT of the neck FINDINGS: Image quality: There is mild motion artifact. Anterior circulation: Intracranial internal carotid arteries are patent bilaterally. There is multi focal calcification along the cavernous segments of the internal carotid arteries bilaterally with as sociated mild multifocal narrowing. The paired anterior cerebral arteries are patent bilaterally. Th ere is mild multifocal narrowing in the left middle cerebral artery as well as focal narrowing in the M1 segment of approximately 50-60%. The middle cerebral arteries are otherwise patent bilaterally. The anterior communicating artery is not well seen. No high-grade stenosis, occlusion, or discrete f illing defects. No cerebral aneurysm identified. Posterior circulation: Visualized portions of the vertebral arteries demonstrate mild multifocal herrera rowing in the distal left vertebral artery without high-grade stenosis. These join to form a patent b asilar artery which also demonstrates luminal irregularity consistent with mild multifocal narrowing. The posterior cerebral arteries are patent bilaterally. No high-grade stenosis, occlusion, or discr ete filling defects. No cerebral aneurysm identified. CSF spaces: There is mild cerebral volume loss with prominence of the ventricles and sulci. Basal ci sterns are patent. No extra-axial fluid collections. Brain: No intracranial hemorrhage, mass, or mass effect. Restrepo-white matter interface is preserved. T here are subcortical and periventricular white matter hypodensities consistent with mild chronic smal l vessel ischemic changes. No abnormal cranial enhancement. Skull and face: Calvarium and facial bones appear intact, without suspicious lesions. Sinuses: Visualized sinuses demonstrate mucosal thickening within air-fluid level in the left spheno id sinus suggestive of acute sinusitis. Mastoid air cells are clear. IMPRESSION: 1. No acute intracranial abnormality. 2. Mild chronic white matter small vessel skin changes and cerebral volume loss. 3. Focal narrowing of approximately 50-60% within the M1 segment of left middle cerebral artery. 4. Mild multifocal narrowing demonstrated including within the left middle cerebral, left vertebral, and basilar arteries. Reviewed by: Adrian Davey MD on 07/26/2022 8:36 PM PDT Approved by: Adrian Davey MD on 07/26/2022 8:36 PM PDT Station ID: [id number]
[2022-07-26] MEDS ORDERED: hydrALAZINE INJ 20 MG/ML VIAL IVP STA (20:42)
--- NOTE | 2022-07-26 20:42 | CT Report ---
PROCEDURE: ANGIO NECK W INDICATIONS: aphasia x 20 mins, now resolved CONTRAST: IV CONTRAST: Optiray 320 ml: 80 PO CONTRAST: *NO PO CONTRAST TECHNIQUE: After the administration of intravenous contrast, 1.5 mm axial sections acquired from the aortic arch to the [place] of [place]azar. Coronal 3-D maximum intensity projection (MIP) and/or volume rendering ref ormats were then performed. For radiation dose reduction, the following was used: automated exposur e control, adjustment of mA and/or kV according to patient size. COMPARISON: Concurrent CT and CTA of the head. FINDINGS: Image quality: Excellent. Carotid system: The great vessels demonstrate a conventional anatomy as they arise from the aortic a rch. The origins of the common carotid arteries appear patent. The common carotid arteries demonstr ate normal calibers and there is mild multifocal narrowing of less than 50%. There is mild narrowing of less than 50% in the carotid vessels bilaterally. The subsequent internal carotid arteries demonst rate normal caliber and course, with mild atherosclerotic plaque and mild narrowing in the distal ext racranial portion of the right internal carotid artery. Posterior circulation: The origins of the vertebral arteries appear patent. The more superior porti ons of the vertebral arteries demonstrate mild multifocal narrowing without high-grade stenosis. They join to form a patent basilar artery which also demonstrates mild multifocal narrowing. Soft tissues: Visualized neck soft tissues demonstrate no suspicious abnormalities. Bones: No suspicious bony lesions. Visualized cervical spine demonstrates multilevel degenerative d isc disease and facet arthropathy. There is minimal retrolisthesis at C2-C3 and C3-C4. IMPRESSION: 1. No high-grade stenosis or occlusion of the head and neck arteries. 2. Mild narrowing of less than 50% in the carotid bulbs. The estimate of stenosis included in the report of the imaging study was calculated using the NASCET method Reviewed by: Adrian Davey MD on 07/26/2022 8:41 PM PDT Approved by: Adrian Davey MD on 07/26/2022 8:41 PM PDT Station ID: [id number]
[2022-07-26] MEDS ORDERED: ACETAMINOPHEN 325 MG TABLET PO PRN (21:06)
[2022-07-26] MEDS ORDERED: ONDANSETRON 4 MG/2 ML VIAL IVP PRN (21:06)
[2022-07-26] MEDS ORDERED: SODIUM CHLORIDE FLUSH 0.9% 10 ML SYRINGE IVP PRN (21:06)
--- NOTE | 2022-07-26 21:13 | HISTORY & PHYSICAL EXAMINATION ---
Chief Complaint - Chief Complaint Chief Complaint: HTN and could not "get the words out" History of Present Illness - Admitted From Admitted From:: ED - History Obtained From History obtained from: ED provider and the patient - History of Present Illness HPI Comment/Other: This is a 81-year-old white female with a history of hypothyroidism and bleeding gastric ulcer in 2018. She recently was diagnosed with HTN and recently underwent a colonoscopy (due to abnormal Colgard test). Before the colonoscopy, preoperatively, her blood pressure was as high as 209 and she received IV hydralazine and the colonoscopy was done. Today the patient noted that she had difficulty finding words, problems with blurred vision and felt off balance. It started when she was on her computer. She checked her blood pressure during this time and it was 196. Her symptoms lasted about 20 minutes. She called her doctor, left a message. The doctor called her back but she did not hear the phone call without her hearing aids on, so the doctor called the patient's daughter in [place], who came to the mother's house and brought the mother to the ED. She presented to the ED about 2 hours after having symptoms. In the ED her blood pressure was documented at 255/68 with pulse of 60 in sinus rhythm. She received a dose of hydralazine 10 mg IV. She underwent imaging of the head and neck, and there was no evidence of stroke or hemorrhage, but there were moderate stenoses noted of the carotid and intracerebral vessels. Her blood pressure was monitored closely in the ED, and the lowest blood pressure she achieved was 199/68. Her labs show that she has normal BUN and creatinine, normal electrolytes and liver test, normal CBC, and mildly elevated troponin at 20.8. The ED provider reached out to the Hospitalist team for bringing this patient in to manage her poorly controlled hypertension and work-up of her probable TIA. The patient takes many naturopathic supplements including CBD oil, Reishi, [place], [place], Cordyseps, Bovine adrenaline and others. She wishes to be a FULL code. History - Past Medical History Cardiovascular: reports: Hypertension (She states HTN has been noted only recently and she has been started on meds only 1 week) Respiratory: reports: None Neuro: reports: None Endocrine/Autoimmune: reports: HyPOthyroidism, Other (She was told by her Sheetmetal Trades Worker that she had "low adrenal function" and takes bovine adrenal tablets) GI: reports: GERD, Ulcers (She had a bleeding gastric ulcer in 2018. She admitted to the general surgeon that she was "taking Hydrochloric Acid because she was told she produces very little stomach acid") MATERIAL CHASER: reports: None : reports: Retention, Nocturia, Frequency HEENT: reports: Chronic hearing loss (has hearing aides), Other (Has cataracts and surgery is planned next week.) Psych: reports: None Musculoskeletal: reports: Chronic back pain Derm: reports: None MRSA Hx?: No - Past Surgical History /MATERIAL CHASER: reports: section - Family & Social History Family History: Mother: , Father: , Cancer Family History Comment/Other: The patient's mother from complications after ischemic colitis, her father had pancreatic cancer. She has 2 adult children who are healthy. 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 Her of cancer 9 yrs ago, and she lives alone. She takes many naturop athic supplements including CBD oil 1-2 times a day, but denies the use of illicit drugs. She has never smoked. She drinks alcohol very rarely. - Substance History Use: Uses substance without health or social issues: NONE - POLST Patient has POLST: No POLST Status: Full Code Meds/Allgy - Home Medications Home Medications: Ambulatory Orders Medication Instructions Recorded Confirmed Thyroid,Pork [Nature-Throid] 16.25 mg PO DAILY 03/26/15 10/12/18 Naltrexone HCl 3 mg PO QPM 08/16/18 10/12/18 Testosterone 4 mg TOP DAILY 08/16/18 10/12/18 estradioL [Estradiol] 0.25 mg TOP DAILY 08/16/18 10/12/18 Pantoprazole [Protonix] 40 mg PO BID #30 tablet 08/19/18 10/12/18 - Allergies Allergies/Adverse Reactions: Allergies Allergy/AdvReac Type Severity Reaction Status Date / Time No Known Drug Allergies Allergy Verified 07/26/22 17:51 Review of Systems - Eyes Eyes: reports: Blurred vision (20 min this morning while using computer.) - Ears, Nose & Throat Ears, Nose & Throat: reports: Hearing loss, Hearing aids - Gastrointestinal Gastrointestinal: reports: Other (Had colonoscopy last week due to abn Colgard test. At colonoscopy 2 polyps were found, biopsied, results pending.) - Genitourinary Genitourinary: reports: Frequency (Ever since put on Lasix a weeka go, for treating HTN.) - Neurological Neurological: reports: Dizziness, Other ("Could not get words out" earlier today) - All Other Systems All Other Systems: reports: Reviewed and negative Exam - Vital Signs Reviewed Vital Signs: Yes Vital Signs: Vital Signs x48h Temp Pulse Resp BP BP BP Pulse Ox 07/26/22 21:00 63 14 200/70 H 93 07/26/22 20:57 66 18 199/68 H 94 07/26/22 20:51 63 16 218/73 H 94 07/26/22 20:49 61 17 220/102 H 96 07/26/22 20:30 61 19 226/63 H 95 07/26/22 20:00 64 16 216/63 H 95 07/26/22 19:30 58 L 16 212/79 H 96 07/26/22 19:00 56 L 15 208/79 H 96 07/26/22 18:25 61 11 L 224/89 H 98 07/26/22 18:22 224/89 H 239/86 H 07/26/22 17:51 36.5 C 68 16 255/68 H 97 - Physical Exam General Appearance: positive: No acute distress, Alert Eyes Bilateral: positive: Normal inspection, EOMI ENT: positive: No signs of dehydration Neck: positive: Nml inspection, No JVD, Other ((+) R sided bruit) Respiratory: positive: No respiratory distress, Breath sounds nml Cardiovascular: positive: Regular rate & rhythm, Systolic murmur (12/03 at LLSB) Abdomen: positive: Non-tender, Nml bowel sounds, No distention Skin: positive: Warm, Dry Extremities: positive: Non-tender, No pedal edema Neurologic/Psychiatric: positive: Oriented x3, Motor nml, Sensation nml Conclusion/Plan - Problem List (1) TIA (transient ischemic attack) Conclusion/Plan: Patient describes classic expressive aphasia, and admits there have been "short episodes of this in the past". We will place the patient in Observation status, on telemetry to watch for A. fib. Order brain MRI. Order Echo with bubble study. Obtain fasting lipid panel. (2) Poorly-controlled hypertension Conclusion/Plan: Patient may have had these neuro symptoms caused by her severely elevated blood pressure, documented as high as 255 systolic in the ED. There was recent documentation of a systolic BP of 209 when she underwent her colonoscopy a week ago. Her executor of estate (Dr Gama) then sent her to an MD (Dr Teran) a week ago, who chose Lasix as her antihypertensive. She has been on the Lasix plus Potassium for only about 4 days, she reports. Will manage her HTN with IV hydralazine and start the patient on p.o. Amlodipine. No Lasix will be continued as she has no edema and no Hx of systolic heart failure. Heart rate slowing meds will be avoided for now, since her resting heart rate is 50-60. Will monitor vital signs every 2 hours. An Echo will be ordered. She had an Echocardiogram done here in 2018. It showed a small LV cavity, LVH, and hyperdynamic LV contractility with intracavitary obliteration because of the very high ejection fraction. If the new Echo shows similar LVH then Amlodipine would not be the antihypertensive of choice but rather an HEATHER or ARB or beta-mirela would be started. Of note, she takes many supplements based on recommendations of her Sheetmetal Trades Worker. I am concerned that one or some of these may be adding to her HTN, for example the bovine adrenaline pills. The daughter is to bring in a list of all the supplements that she takes, and the list should then be reviewed with our pharmacist. Will check a morning cortisol level. A low salt diet was advised and will be ordered here. I reviewed all the above and this entire plan with the patient and daughter at bedside. (3) PVD (peripheral vascular disease) Conclusion/Plan: Moderate carotid disease and intra cerebral disease has now been documented, thus she has newly diagnosed PVD now. Will check lipid panel and possibly she will need a statin medication. We discussed a low cholesterol diet. We will start the patient on daily baby aspirin, since her UGI bleed was 4 years ago. (4) Elevated troponin Conclusion/Plan: First troponin is mildly abnormal at 20.8. She also has an abnormal EKG with evidence of LVH and strain pattern versus lateral ischemia, which are new changes since her last EKG done here, which was in 2018. She had an Echocardiogram done then in 2018. It showed a small LV cavity, LVH, hyperdynamic LV contractility with intracavitary obliteration because of the very high ejection fraction. Will check another troponin at the 3-hour lady and consider further troponin mon itoring if trop is rising. A complete Echocardiogram will be ordered. (5) Hypothyroidism Conclusion/Plan: We will check TSH with morning labs. Will order patient's own med thyroid replacement while she is here. - Lab Results Fish Bones: 07/26/22 18:20 07/26/22 18:20
[2022-07-26] MEDS ORDERED: hydrALAZINE INJ 20 MG/ML VIAL IVP ONE (22:12)
[2022-07-27] MEDS: SODIUM CHLORIDE FLUSH 0.9% 10 ML SYRINGE IVP SCH ×2 (00:30→09:16)
[2022-07-27] MEDS ORDERED: hydrALAZINE INJ 20 MG/ML VIAL IVP ONE (01:20)
[2022-07-27 05:51] LABS: CHOL/HDL RATIO 4.7 (<4.4); CHOLESTEROL 243 mg/dL; HDL CHOLESTEROL 52 mg/dL; LDL CHOLESTEROL,CALCULATED 172 mg/dL; LDL/HDL RATIO 3.3 (<4.4); MAGNESIUM 2.3 mg/dL (1.7-2.8); TRIGLYCERIDES 96 mg/dL; VLDL CHOLESTEROL 19 mg/dL
[2022-07-27] MEDS ORDERED: ASPIRIN EC 81 MG TABLET PO SCH (09:00)
[2022-07-27] MEDS ORDERED: THYROID PORK 16.25 MG PO SCH (09:00)
[2022-07-27] MEDS ORDERED: amLODIPine 5 MG TABLET PO SCH (09:00)
--- NOTE | 2022-07-27 10:20 | Discharge Plan ---
Discharge Plan Problem Reviewed?: Yes Disposition: Home, Self Care Condition: Good Prescriptions: amLODIPine [Norvasc] 5 mg PO DAILY #30 tablet Diet: Low Sodium Activity Restrictions: Activity as Tolerated Shower Restrictions: No Driving Restrictions: No Health Concerns: You presented to our emergency room with symptoms of a stroke and we found you to have severely uncontrolled high blood pressure. You do have narrowing of your arteries in your neck and brain as seen on angiogram of the brain. Your symptoms have resolved completely so we have diagnosed you as a transient ischemic attack and not a permanent stroke. Plan of Treatment: 1. In order to reduce your risk of stroke your blood pressure must be under control, your cholesterol must be under control, and if you take any supplements that increase your risk, those must be stopped. 2. To reduce your risk of blood pressure causing stroke, you should be taking a blood pressure pill every day. Only time will tell if you need 1 or 2 blood pressure medications since your blood pressure is severely elevated. Your blood pressure was as high as 255 on the top number. Goal is to have your blood pressure 120 at all times. We have started you on amlodipine 5 mg a day. With your next visit to your doctor if your blood pressure is not at goal he will need to increase it to 10 mg a day. A month after that if your blood pressure is still not under control we would recommend adding a medication such as lisinopril or losartan. 3. Your cholesterol needs to be reduced as well to reduce your risk of stroke. Your total cholesterol was 243, bad cholesterol was 172, good cholesterol was 52. You should be taking a cholesterol pill once a day. Have your doctor recheck your cholesterol panel in a month. We have opted to leave the choice of what medicine to start with your primary care provider. Most people take Lipitor or Zocor. 4. Please see your primary care provider in follow-up in the next 1 to 2 weeks. He needs to check your blood pressure and adjust her medications as needed. 5. Please start 1 enteric-coated baby aspirin a day. This may be problematic. You have a history of previous gastric ulcer bleeding from taking a HCl supplementation. Taking a baby aspirin a day carries a risk of 4% of GI bleed. If you cannot take a baby aspirin a day, the next platelet inhibitor that may be an option for you is something called Plavix. Again please discuss with your primary care provider if that medication is better for you than a baby aspirin a day. 6. Please consider discussing with your DURABLE POWER OF CUSTOMER ACCOUNT TECHNICIAN for future plans if you become disabled. Do you have plans to live in your own home with live-in help? Have you identified a assisted living facility where you will go live? Or have you identified relatives or friends that you will live with. None of those plans may come to fruition and you may not need to enact them, but it helps to have a plan in place. Care Goals: To reduce your risk of stroke, and to live independently as long as possible Assessment: Patient is alert, oriented, understands treatment plan. Her management has already been discussed with her primary care provider, Dr. Teran, and she promises to follow through with an appointment with him No Smoking: If you smoke, Please STOP! Call for help. Follow-up with: Dillan Gama ND [Primary Care Provider] -
--- NOTE | 2022-07-27 11:55 | MRI Report ---
PROCEDURE: Brain W/O INDICATIONS: TIA (expressive aphasia) TECHNIQUE: Noncontrast axial T1 spin echo, axial T2 fast spin echo, sagittal and axial FLAIR, coronal T2 fast sp in echo, axial gradient echo, axial diffusion and ADC through the brain. COMPARISON: 07/26/2022 FINDINGS: Image quality: Excellent. CSF Spaces: Basal cisterns are patent. No extra-axial fluid collections. Ventricles are normal in size and shape. Brain: Mild global cerebral volume loss and moderate chronic intravascular ischemic change. No intra cranial masses or hemorrhage. Restrepo/white matter interface is normal. Brainstem appears normal. Dif fusion-weighted images demonstrate no acute ischemic insult. No chronic ischemic insults. Normal in travascular flow voids are present. Skull and face: Calvarium has normal marrow signal. Orbits appear normal. Sinuses: Sinuses and mastoids are clear. IMPRESSION: No acute intracranial finding. Mild global cerebral volume loss and moderate chronic microvascular ischemic changes. Reviewed by: Bebo Loya MD on 07/27/2022 11:54 AM PDT Approved by: Bebo Loya MD on 07/27/2022 11:54 AM PDT Station ID: [id number]
[2022-07-27 13:16] VITALS: BP 174/61
--- NOTE | 2022-07-27 14:26 | DISCHARGE SUMMARY ---
Discharge Summary Admit Date: 07/26/22 Discharge Date: 07/27/22 Discharging Provider: Heide Smith MD Primary Care Provider: Dr. Teran, Psychiatrist and Naturopathic Medicine Code Status: Attempt Resuscitation Condition at Discharge: Good Discharge Disposition: 01 Home, Self Care - DIAGNOSES Discharge Diagnoses with Status of Each Condition: 1. TIA 2. Poorly controlled hypertension 3. Peripheral vascular disease 4. Elevated troponin 5. Hypothyroidism - HPI History of Present Illness: This is a 81-year-old white female with a history of hypothyroidism and bleeding gastric ulcer in 2018. She recently was diagnosed with HTN and recently underwent a colonoscopy (due to abnormal Colgard test). Before the colonoscopy, preoperatively, her blood pressure was as high as 209 and she received IV hydralazine and the colonoscopy was done. Today the patient noted that she had difficulty finding words, problems with blurred vision and felt off balance. It started when she was on her computer. She checked her blood pressure during this time and it was 196. Her symptoms lasted about 20 minutes. She called her doctor, left a message. The doctor called her back but she did not hear the phone call without her hearing aids on, so the doctor called the patient's daughter in [place], who came to the mother 's house and brought the mother to the ED. She presented to the ED about 2 hours after having symptoms. In the ED her blood pressure was documented at 255/68 with pulse of 60 in sinus rhythm. She received a dose of hydralazine 10 mg IV. She underwent imaging of the head and neck, and there was no evidence of stroke or hemorrhage, but there were moderate stenoses noted of the carotid and intracerebral vessels. Her blood pressure was monitored closely in the ED, and the lowest blood pressure she achieved was 199/68. Her labs show that she has normal BUN and creatinine, normal electrolytes and liver test, normal CBC, and mildly elevated troponin at 20.8. The ED provider reached out to the Hospitalist team for bringing this patient in to manage her poorly controlled hypertension and work-up of her probable TIA. The patient takes many naturopathic supplements including CBD oil, Reishi, [place], [place], Cordyseps, Bovine adrenaline and others. She wishes to be a FULL code. History - Past Medical History Cardiovascular: reports: Hypertension (She states HTN has been noted only recently and she has been started on meds only 1 week) Respiratory: reports: None Neuro: reports: None Endocrine/Autoimmune: reports: HyPOthyroidism, Other (She was told by her Furnace Stock Inspector that she had "low adrenal function" and takes bovine adrenal tablets) GI: reports: GERD, Ulcers (She had a bleeding gastric ulcer in 2018. She admi tted to the general surgeon that she was "taking Hydrochloric Acid because she was told she produces very little stomach acid") ROAD DESIGN ENGINEER: reports: None : reports: Retention, Nocturia, Frequency HEENT: reports: Chronic hearing loss (has hearing aides), Other (Has cataracts and surgery is planned next week.) Psych: reports: None Musculoskeletal: reports: Chronic back pain Derm: reports: None MRSA Hx?: No - Past Surgical History /ROAD DESIGN ENGINEER: reports: section - CONSULTS | PROCEDURES Procedures: CT of head with angiogram of head and neck. Neck arteries are without high-grade stenosis or occlusion. Mild narrowing of less than 50% in the carotid bulbs. Multifocal calcification along the cavernous sinus segments of the internal carotid arteries bilaterally with associated mild multifocal narrowing.. Anterior cerebral arteries are patent bilaterally. Mild focal narrowing in the left middle cerebral artery as well as focal narrowing in the M1 segment of approximately 50 to 60%. The middle cerebral arteries are otherwise patent bilaterally. No high-grade stenosis, occlusion, or discrete filling defects. No cerebral aneurysm. Posterior circulation has vertebral arteries with mild focal narrowing in the distal left vertebral artery without high-grade stenosis. These join to form a patent basilar artery which also demonstrates luminal irregularity consistent with multifocal narrowing. Mild cerebral volume loss. No intracranial hemorrhage, mass, or mass Brain MRI with no acute intracranial finding. Mild global cerebral volume loss and moderate chronic microvascular ischemic changes. Echocardiogram is a preliminary report. Final report must be reviewed. Underlying left ventricular cavity size decreased. Mild concentric left ventricular hypertrophy. Overall left ventricular systolic function normal with an ejection fraction of 65 to 70%. Calculated left ventricular ejection fraction 67%. Impaired relaxation compatible with grade 1 diastolic dysfunction. No significant valvular heart disease. Triglycerides 96. Cholesterol 243. LDL 172. VLDL 19. HDL 52. TSH 2.84. Cortisol 14.9. - HOSPITAL COURSE Hospital Course: Patient symptoms presented 2 hours before arrival. By the time of being evaluated in the emergency room all symptoms had resolved and she had a normal physical exam. She was placed in observation where telemetry overnight showed no arrhythmias. MRI showed moderate global ischemic changes with volume loss but no stroke. CT angiograms of head and neck had multifocal narrowing predominantly on the left cerebral system but nothing significant. Blood pressure was significantly elevated during her stay. In the emergency room she was quoted as being as 255 systolic. We did give her hydralazine as needed. And we started her on Norvasc. We were trying to keep in mind that we did not want to lower blood pressure quickly in the first 48 hours. She was started on Norvasc 5 mg a day. I spoke to her primary care provider, a psychiatrist named Dr. Teran who is also a clip and hanger attacher. I asked that she please be reevaluated for her blood pressure in a week or 2. If 5 mg of amlodipine did not work, considering increasing to 10 mg. Again evaluate a month later. If 10 mg was not working add an ARB. The patient tells me that she has a steam hammer operator that we will be following her for this. They are in [place].Are high- sensitivity troponin levels go to 14.8 on the high side. She was 20.8 and 27. We feel this is just troponin elevation due to the elevated blood pressure. We do not feel she has a type I or type II elevation. Daughter was at the bedside at discharge. All the scans were reviewed, and risk factor modifying therapy was recommended in the form of blood pressure pills and cholesterol pills. I have also like to take her on Ecotrin tablet a day. I also recommended that the patient not need to take as many krta-nwi-txnlbep supplements that she had. She is taking approximately 65 zgue-mwy-ldsxxmu vitamins. She says that she eats a regular diet, does not exercise very much, but is otherwise healthy. She does this to take care of her immune system. She does not report any immunocompromising status other than age. So my recommendation is she stop all of these lwvg-xwh-zvzendd medications and focus on a low-cholesterol diet, walking 20 to 30 minutes a day, and controlling her blood pressure. At discharge temperature was 36.5. Heart rate 68. Blood pressure 174/61. Respirations 18. 96% on room air. She is an alert oriented elderly female. She is 5 feet 2 inches tall and weighs 75.5 kg. Discussion with her reveals a dysthymic thought process. She is only, feels like there is not much more to live for even though she loves her children very much, and they are present in her life. Neck is supple without any bruits. Lungs are clear to auscultation. She has a regular rate and rhythm with a positive S4. No S3. Abdomen is soft, nontender. Extremities are without edema and she has good foot pulses. - ALLERGIES Allergies/Adverse Reactions: Allergies Allergy/AdvReac Type Severity Reaction Status Date / Time No Known Drug Allergies Allergy Verified 07/26/22 17:51 - MEDICATIONS Home Medications: Ambulatory Orders Medication Instructions Recorded Confirmed Thyroid,Pork [Nature-Throid] 16.25 mg PO DAILY 03/26/15 10/12/18 Naltrexone HCl 3 mg PO QPM 08/16/18 10/12/18 Testosterone 4 mg TOP DAILY 08/16/18 10/12/18 estradioL [Estradiol] 0.25 mg TOP DAILY 08/16/18 10/12/18 Pantoprazole [Protonix] 40 mg PO BID #30 tablet 08/19/18 10/12/18 Furosemide [Lasix] 20 mg PO DAILY 07/27/22 07/27/22 Potassium Chloride 10 meq PO 07/27/22 amLODIPine [Norvasc] 5 mg PO DAILY #30 tablet 07/27/22 - LABS Result Diagrams: 07/26/22 18:20 07/26/22 18:20
[2022-07-27] MEDS ORDERED: NALTREXONE HCL 50 MG PO SCH (21:00)
== END 2022-07-27 15:10 | disposition home or self-care (01) ==
LOC: ED 17:47 → MS2 21:06
PROVIDERS: ADMIT Internal Medicine; ATTEND Specialist
DX: G45.9 Transient cerebral ischemic attack, unspecified (principal); I11.9 Hypertensive heart disease without heart failure; I73.9 Peripheral vascular disease, unspecified; R77.8 Other specified abnormalities of plasma proteins; E03.9 Hypothyroidism, unspecified; K21.9 Gastro-esophageal reflux disease without esophagitis; Z87.19 Personal history of other diseases of the digestive system; R35.0 Frequency of micturition; I67.2 Cerebral atherosclerosis; Z20.822 Contact with and (suspected) exposure to COVID-19
CPT/HCPCS: 36415; 70496; 70498; 70551; 80053; 80061; 81003; 82533; 83690; 83735; 84443; 84484; 85025; 85610; 87635; 93005; 93306; 96374; 96376; 99285; A9270; G0378; Q9967; 81001; 83721; 87086

== ENCOUNTER 2023-01-28 08:52 | Outpatient (CLI) | payer MEDICARE, OTHER ==
[2023-01-28 14:44] LABS: BASOPHILS % (AUTO) 0.4 %; EOSINOPHILS # (AUTO) 0.2 10^3/uL (0.0-0.7); EOSINOPHILS % (AUTO) 2.2 %; HCT - HEMATOCRIT 43.7 % (37.0-47.0); HGB - HEMOGLOBIN 14.1 g/dL (12.0-16.0); LYMPHOCYTES # (AUTO) 2.1 10^3/uL (1.5-3.5); MEAN CORPUSCULAR HEMOGLOBIN 28.7 pg (27.0-31.0); MEAN CORPUSCULAR HGB CONC 32.3 g/dL (32.0-36.0); MEAN PLATELET VOLUME 9.4 fL (7.9-10.8); MONOCYTES # (AUTO) 0.6 10^3/uL (0.0-1.0); MONOCYTES % (AUTO) 8.2 %; NEUTROPHILS # (AUTO) 4.8 10^3/uL (1.5-6.6); NEUTROPHILS % (AUTO) 61.9 %; PLT - PLATELET COUNT 421 10^3/uL (130-450); RED BLOOD COUNT 4.91 10^6/uL (4.20-5.40); RED CELL DISTRIBUTION WIDTH 14.4 % (12.0-15.0); WHITE BLOOD COUNT 7.7 x10^3/uL (4.8-10.8)
[2023-01-28 15:00] LABS: ALBUMIN 3.9 g/dL (3.2-5.5); ALBUMIN/GLOBULIN RATIO 1.2 (1.0-2.2); ALKALINE PHOSPHATASE 69 IU/L (42-121); ALT ALANINE AMINOTRANSFERASE 18 IU/L (10-60); AST ASPARTATE AMINOTRANSFERASE 21 IU/L (10-42); BILIRUBIN,TOTAL 0.7 mg/dL (0.2-1.0); BUN - BLOOD UREA NITROGEN 19 mg/dL (6-20); CALCIUM 9.2 mg/dL (8.5-10.3); CARBON DIOXIDE - CO2 26 mmol/L (21-32); CHLORIDE 105 mmol/L (101-111); CHOL/HDL RATIO 3.8 (<4.4); CHOLESTEROL 271 mg/dL; CREATININE 0.6 mg/dL (0.4-1.0); CRP HIGH SENSITIVITY 1.4 mg/L; GFR - MDRD 96 (>89); GLUCOSE 101 mg/dL (70-100); HDL CHOLESTEROL 72 mg/dL; LDL CHOLESTEROL,CALCULATED 184 mg/dL; LDL/HDL RATIO 2.6 (<4.4); POTASSIUM 4.1 mmol/L (3.5-5.0); SODIUM 140 mmol/L (135-145); TOTAL PROTEIN 7.1 g/dL (6.7-8.2); TRIGLYCERIDES 74 mg/dL; VLDL CHOLESTEROL 15 mg/dL
[2023-01-28 15:09] LABS: ESTIMATED AVERAGE GLUCOSE 114 mg/dL (70-100); HEMOGLOBIN A1c% 5.6 % (4.27-6.07)
[2023-01-28 15:14] LABS: FREE T3 3.29 pg/mL (2.5-3.9)
[2023-01-28 15:15] LABS: FREE T4 (FREE THYROXINE) 1.04 ng/dL (0.58-1.64); THYROID STIMULATING HORMONE 4.09 uIU/mL (0.34-5.60)
[2023-01-28 15:21] LABS: FERRITIN 31.1 ng/mL (11.0-306.8)
[2023-01-29 05:10] LABS: VITAMIN D 25-HYDROXY 87.2 ng/mL (30.0-100.0)
[2023-01-29 06:10] LABS: APOLIPOPROTEIN B 126 mg/dL (<90)
[2023-01-29 07:09] LABS: ESTRADIOL <5.0 pg/mL (.)
[2023-01-29 19:07] LABS: FREE TESTOSTERONE(DIRECT) 2.3 pg/mL (0.0-4.2); SEX HORM BINDING GLOB SERUM 73.2 nmol/L (17.3-125.0); TESTOSTERONE 57 ng/dL (3-67)
[2023-01-30 23:07] LABS: COPPER SERUM OR PLASMA 120 ug/dL (80-158)
[2023-02-03 18:08] LABS: ESTROGENS TOTAL 89 pg/mL (40-244)
== END 2023-01-28 08:53 | disposition home or self-care (01) ==
LOC: LAB.S 08:52
PROVIDERS: ATTEND Preventive Medicine Public Health & General Preventive Medicine
DX: I11.9 Hypertensive heart disease without heart failure (principal); Z86.73 Personal history of transient ischemic attack (TIA), and cerebral infarction without residual deficits; D64.9 Anemia, unspecified; R53.82 Chronic fatigue, unspecified; E55.9 Vitamin D deficiency, unspecified; E27.9 Disorder of adrenal gland, unspecified; E16.2 Hypoglycemia, unspecified; D68.4 Acquired coagulation factor deficiency; T38.5X5A Adverse effect of other estrogens and progestogens, initial encounter; E78.5 Hyperlipidemia, unspecified; E78.00 Pure hypercholesterolemia, unspecified; E03.9 Hypothyroidism, unspecified; G47.00 Insomnia, unspecified; M19.019 Primary osteoarthritis, unspecified shoulder; M19.92 Post-traumatic osteoarthritis, unspecified site
CPT/HCPCS: 36415; 80053; 80061; 81599; 82172; 82306; 82390; 82525; 82627; 82670; 82672; 82728; 83036; 83090; 83695; 83721; 84270; 84402; 84403; 84439; 84443; 84481; 85025; 85379; 85384; 85651; 86141